=== PATIENT | male | born 1940 | race Caucasian/White ===

== ENCOUNTER 2016-04-22 | Outpatient (CLI) | payer MEDICARE | END 2016-04-22 20:45 | disposition short-term general hospital (02) | CPT/HCPCS: A0425; A0426 ==

== ENCOUNTER 2016-04-22 17:29 | Emergency (ER) | payer MEDICARE ==
[2016-04-22] MEDS ORDERED: SODIUM CHLORIDE 0.9% 1,000 ML IV ONE ×2 (17:54→19:29)
[2016-04-22] MEDS ORDERED: AMPICILLIN/SULBACTAM 3 GM in SODIUM CHLORIDE 0.9% MINIBAG 100 ML IV STA (19:18)
== END 2016-04-22 20:35 | disposition short-term general hospital (02) ==
DX: K83.0 Cholangitis (principal); K80.20 Calculus of gallbladder without cholecystitis without obstruction

== ENCOUNTER 2016-12-06 15:34 | Outpatient (CLI) | payer MEDICARE | END 2016-12-06 15:35 | disposition critical access hospital (66) | LOC: EMS 15:34 | PROVIDERS: ATTEND Surgery | DX: M25.552 Pain in left hip (principal); M79.602 Pain in left arm; W18.30XA Fall on same level, unspecified, initial encounter; Y92.008 Other place in unspecified non-institutional (private) residence as the place of occurrence of the external cause | CPT/HCPCS: A0425; A0429 ==

== ENCOUNTER 2016-12-06 16:06 | Inpatient (IN) | payer MEDICARE, MEDICAID ==
[2016-12-06] MEDS ORDERED: ACETAMINOPHEN 1,000 MG/100 ML 100 ML IV STA (16:20)
[2016-12-06] MEDS ORDERED: ACETAMINOPHEN 1,000 MG/100 ML 100 ML IV ONE (16:40)
[2016-12-06 16:47] LABS: BASOPHILS # (AUTO) 0.1 10^3/uL (0.0-0.1); BASOPHILS % (AUTO) 0.7 %; EOSINOPHILS % (AUTO) 0.3 %; HGB - HEMOGLOBIN 13.9 g/dL (14.0-18.0); LYMPHOCYTES # (AUTO) 0.7 10^3/uL (1.5-3.5); MEAN CORPUSCULAR HEMOGLOBIN 30.9 pg (27.0-31.0); MEAN CORPUSCULAR HGB CONC 33.1 g/dL (32.0-36.0); MEAN CORPUSCULAR VOLUME 93.4 fL (80.0-94.0); MEAN PLATELET VOLUME 7.8 fL (7.4-11.4); MONOCYTES # (AUTO) 0.4 10^3/uL (0.0-1.0); MONOCYTES % (AUTO) 4.6 %; NEUTROPHILS # (AUTO) 7.7 10^3/uL (1.5-6.6); NEUTROPHILS % (AUTO) 86.4 %; RED BLOOD COUNT 4.49 10^6/uL (4.70-6.10); RED CELL DISTRIBUTION WIDTH 14.4 % (12.0-15.0); UNCORRECTED WHITE BLOOD COUNT 8.9 x10^3/uL; WHITE BLOOD COUNT 8.9 x10^3/uL (4.8-10.8)
--- NOTE | 2016-12-06 17:07 | ED Physician Documentation ---
History of Present Illness - Stated complaint Stated Complaint: GLF - Chief complaint Chief Complaint: Trauma Ext - Additonal information Additional information: hx from pt 75 male stumbles and fell today landing on left side states did not hit his head, no [place] or neck pain, no LOC no CP or abd pain has L shoulder and L hip pain had a recent cough but otherwise well without fever NVD etc Review of Systems Constitutional: denies: Fever, Chills Cardiac: denies: Chest pain / pressure Respiratory: reports: Cough GI: denies: Abdominal Pain, Nausea, Vomiting, Diarrhea Musculoskeletal: reports: Extremity pain. denies: Neck pain Neurologic: denies: Headache, Head injury Endocrine: denies: Easy bruising / bleeding Immunocompromised: denies: Immunocompromised PD PAST MEDICAL HISTORY - Past Medical History Past Medical History: Yes Cardiovascular: None Respiratory: None Neuro: Head injury Endocrine/Autoimmune: None GI: None : None HEENT: Chronic hearing loss Psych: None Musculoskeletal: None Derm: None - Past Surgical History Past Surgical History: Yes General: Hiatal hernia repair - Present Medications Home Medications: Ambulatory Orders Medication Instructions Recorded Confirmed Aspirin [Kailee Chewable Aspirin] 81 mg DAILY 03/10/15 03/10/15 Multivitamin [Multivitamins] 1 tab DAILY 03/10/15 03/10/15 - Allergies Allergies/Adverse Reactions: Allergies Allergy/AdvReac Type Severity Reaction Status Date / Time No Known Drug Allergies Allergy Verified 06/05/13 10:09 - Social History Does the pt smoke?: No Smoking Status: Never smoker Does the pt drink ETOH?: No Does the pt have substance abuse?: No - Immunizations Immunizations are current?: No Immunizations: TDAP >10years/unknown PD ED PE NORMAL - Vitals Vital signs reviewed: Yes - General General: Other (alert cooperative) - HEENT HEENT: Atraumatic - Neck Neck: No bony TTP - Cardiac Cardiac: RRR - Respiratory Respiratory: No respiratory distress - Abdomen Abdomen: Soft, Non tender - Derm Derm: Normal color - Extremities Extremities: Other (TTP lateral upper L humerus s deformity or brusing and minimal pain with RROM, MSV intact, L hip TTP greater troch and slightly int rotated, MSV intact) - Neuro Neuro: No motor deficit, No sensory deficit Results - Vitals Vitals: Vital Signs - 24 hr 12/06/16 12/06/16 16:07 17:13 Temperature 36.3 C L 36.4 C L Heart Rate 72 71 Respiratory 16 18 Rate Blood Pressure 145/87 H 144/77 H O2 Saturation 100 100 Oxygen O2 Source Room air - Labs Labs: Laboratory Tests 12/06/16 12/06/16 16:35 17:16 WBC 8.9 RBC 4.49 L Hgb 13.9 L Hct 42.0 MCV 93.4 MCH 30.9 MCHC 33.1 RDW 14.4 Plt Count 259 MPV 7.8 Neut # 7.7 H Lymph # 0.7 L [place] # 0.4 Eos # 0.0 Baso # 0.1 Absolute Nucleated RBC 0.00 Nucleated RBC % 0.0 Sodium 137 Potassium 4.2 Chloride 103 Carbon Dioxide 23 Anion Gap 11.0 BUN 29 H Creatinine 1.0 Estimated GFR (MDRD) 73 L Glucose 125 H Calcium 9.0 - Rads (name of study) hip Radiology: See rad report (intertroch fx) shoulder Radiology: See rad report (no fx) CXR Radiology: See rad report (no acute) PD MEDICAL DECISION MAKING - ED course ED course: 75 male fairly healthy except prior closed head injury stumble fall -> L intertroch spoke to hospitalist approx [phone] and ortho approx [phone] hospitalist to admit, ortho to consult, plan on surgery tomorrow about 1130 doing well with ofirmev for pain Departure - Departure Disposition: 68 [facility] DC/Xfer Clinical Impression: Hip fracture Qualifiers: Encounter type: initial encounter Fracture type: closed Laterality: left Qualified Code(s): S72.002A - Fracture of unspecified part of neck of left femur , initial encounter for closed fracture Fall from slip, trip, or stumble Qualifiers: Encounter type: initial encounter Qualified Code(s): W01.0XXA - Fall on same level from slipping, tripping and stumbling without subsequent striking against object, initial encounter Condition: Good
--- NOTE | 2016-12-06 17:12 | XRAY Preliminary Report ---
Exam: XR SHOULDER 3 VIEW LT IMPRESSION: No evidence of fracture or dislocation. [facility] SITE ID: [id number]
--- NOTE | 2016-12-06 17:14 | XRAY Report ---
EXAM: LEFT SHOULDER RADIOGRAPHY EXAM DATE: 12/06/2016 05:04 PM. CLINICAL HISTORY: Fall. COMPARISON: None. TECHNIQUE: 3 views. FINDINGS: Bones: No evidence of shoulder fracture. There are remote left-sided rib fractures. Joints: No evidence of dislocation. There is mild glenohumeral and acromioclavicular joint degenerat blanca disease. Soft Tissues: No unexpected soft tissue findings. IMPRESSION: No evidence of fracture or dislocation. [facility] Referring Provider Line: [phone] SITE ID: [id number]
--- NOTE | 2016-12-06 17:14 | XRAY Preliminary Report ---
Exam: XR HIP W/PELVIS 2-3V LT IMPRESSION: There is left intertrochanteric proximal femur fracture. No evidence of dislocation. [facility] SITE ID: [id number]
--- NOTE | 2016-12-06 17:17 | XRAY Report ---
EXAM: LEFT HIP AND PELVIS RADIOGRAPHY EXAM DATE: 12/06/2016 05:04 PM. HISTORY: Fall. COMPARISONS: None. TECHNIQUE: 1 view of the pelvis and 1 view of the hip. FINDINGS: Bones: There is displaced intertrochanteric femur fracture. No other focal bony abnormalities are see n. Joints: No evidence of dislocation. Soft Tissues: Normal. No soft tissue swelling. IMPRESSION: There is left intertrochanteric proximal femur fracture. No evidence of dislocation. [facility] Referring Provider Line: [phone] SITE ID: [id number]
[2016-12-06 17:31] LABS: POTASSIUM 4.2 mmol/L (3.5-5.0)
--- NOTE | 2016-12-06 17:36 | XRAY Preliminary Report ---
Exam: XR CHEST 1 VIEW IMPRESSION: No acute intrathoracic plain film abnormality. [facility] SITE ID: [id number]
--- NOTE | 2016-12-06 17:38 | XRAY Report ---
EXAM: CHEST RADIOGRAPHY EXAM DATE: 12/06/2016 05:24 PM. CLINICAL HISTORY: Cough. COMPARISON: 10/11/2006. TECHNIQUE: 1 view. FINDINGS: Lungs/Pleura: No evidence of acute consolidation or effusion. No pneumothorax. There is mild relative right hemidiaphragm elevation. Mediastinum: Heart size is within normal limits. There is thoracic aortic tortuosity. Stable filters projecting over the SVC. Other: There are remote left-sided rib fractures. IMPRESSION: No acute intrathoracic plain film abnormality. [facility] Referring Provider Line: [phone] SITE ID: [id number]
[2016-12-06] MEDS ORDERED: ACETAMINOPHEN 325 MG TABLET PO PRN (18:32)
[2016-12-06] MEDS ORDERED: ZOLPIDEM 5 MG TABLET PO PRN (18:32)
[2016-12-06] MEDS ORDERED: ONDANSETRON 4 MG/2 ML VIAL IVP PRN (18:32)
[2016-12-06] MEDS ORDERED: SODIUM CHLORIDE FLUSH 0.9% 10 ML SYRINGE IVP PRN (18:32)
--- NOTE | 2016-12-06 18:42 | HISTORY & PHYSICAL EXAMINATION ---
Chief Complaint - Chief Complaint Chief Complaint: hip fracture History of Present Illness - Admitted From Admitted From:: ER - History Obtained From History obtained from: pt - History of Present Illness HPI Comment/Other: this is 75-year-old [place] male with a significant medical history of chronic hearing loss, previous head injury, present ER for evaluation of left hip injury. Pt state stumbles and fall at concrete floor at his car garage. His left hip hit the floor, he feels pain immediately at left hip. Patient denies other injuries and other complains. Xray reveal pt had left hip non-displaced intertrochanteric femur fracture. Dr. Zapata was called at ER, and pt will have surgery on tomorrow. The lab tests in ER are unremarkable. History - Past Medical History Cardiovascular: reports: None Respiratory: reports: None Neuro: reports: Head injury Endocrine/Autoimmune: reports: None GI: reports: None : reports: None HEENT: reports: Chronic hearing loss Psych: reports: None Musculoskeletal: reports: None Derm: reports: None MRSA Hx?: No - Past Surgical History General: reports: Hiatal hernia repair - Family & Social History Family History Comment/Other: pt state he is retired and is living alone at [place]. Living arrangement: At home Living Situation: Alone - Substance History Use: Uses substance without health or social issues: NONE Abuse: Recurrent use of substance despite neg consequences: NONE Dependence: Experiences withdrawal or developed tolerances: NONE - POLST POLST Status: Full Code Meds/Allgy - Home Medications Home Medications: Ambulatory Orders Medication Instructions Recorded Confirmed Aspirin [Kailee Chewable Aspirin] 81 mg DAILY 03/10/15 03/10/15 Multivitamin [Multivitamins] 1 tab DAILY 03/10/15 03/10/15 - Allergies Allergies/Adverse Reactions: Allergies Allergy/AdvReac Type Severity Reaction Status Date / Time No Known Drug Allergies Allergy Verified 06/05/13 10:09 Review of Systems - Constitutional Constitutional: reports: Fatigue, Fever, Chills, Malaise. denies: Weakness, Poor appetite, Diaphoresis, Night sweats, Weight gain, Weight loss - Eyes Eyes: denies: Pain, Irritation, Amaurosis, Blurred vision, Spots in vision, Field loss, Vision loss, Dipolpia - Ears, Nose & Throat Ears, Nose & Throat: reports: Hearing loss, Hearing aids. denies: Ear pain, Tinnitus, Vertigo, Nasal pain, Nasal discharge, Nosebleeds, Nasal congestion, Postnasal drainage, Sore throat, Hoarseness, Mouth lesions, Bleeding gums - Cardiovascular Cariovascular: denies: Irregular heart rate, Palpitations, Chest pain, Edema, Lightheadedness, Syncope, Exertional dyspnea, Decr. exercise tolerance, Orthopnea - Respiratory Respiratory: denies: Cough, Sputum production, Wheezing, Snoring, Hemoptysis, Orthopnea, SOB at rest, SOB with exertion - Gastrointestinal Gastrointestinal: denies: Abdominal pain, Abdominal distention, Constipation, Diarrhea, Change in bowel habits, Rectal bleeding, Black stools, Bloody stools, Nausea, Vomiting, Ian blood emesis, Coffee grounds emesis, Poor appetite - Genitourinary Genitourinary: denies: Dysuria, Frequency, Urgency, Hematuria, Incontinence, Flank pain, Nocturia, Urethral discharge - Musculoskeletal Musculoskeletal: reports: Limited range of motion (left hip), Joint pain (left hip). denies: Muscle pain, Back pain, Muscle aches, Stiffness, Muscle weakness , Gout, Joint swelling - Integumentary Integumentary: denies: Rash, Pruritis, Lesions, Dryness, Lumps, Acne, Pigment changes, Nail changes - Neurological Neurological: denies: General weakness, Focal weakness, Headache, Dizziness, Numbness, Memory problems, Pre-existing deficit, Abnormal gait, Seizures, Incoordination, Slurred speech - Psychiatric Psychiatric: denies: Depression, Anxiety, Suicidal, Delusions, Hallucinations, Homicidal - Endocrine Endocrine: denies: Polyuria, Polydypsia, Polyphagia, Intolerance to cold, Intolerance to heat - Hematologic/Lymphatic Hematologic/Lymphatic: denies: Anemia, Bruising, Petechiae, Blood clots, Lymphadenopathy, Bleeding tendencies, Recurrent infections Exam - Vital Signs Reviewed Vital Signs: Yes Vital Signs: Vital Signs x48h Temp Pulse Resp BP Pulse Ox 12/06/16 17:13 36.4 C L 71 18 144/77 H 100 12/06/16 16:07 36.3 C L 72 16 145/87 H 100 - Physical Exam General Appearance: positive: No acute distress, Alert. negative: Lethargic Eyes Bilateral: positive: Normal inspection, PERRL, EOMI, No lid inflammation, Conjunctivae nml ENT: positive: ENT inspection nml, Pharynx nml, No signs of dehydration. negative: Purulent nasal drainage, Pharyngeal erythema, Oral lesions Neck: positive: Nml inspection, Thyroid nml, No JVD, Trachea midline. negative : Thyromegaly, Lymphadenopathy (R), Lymphadenopathy (L), Stiff neck, Carotid bruit, Swelling/bruising, Tracheal deviation Respiratory: positive: Chest non-tender, No respiratory distress, Breath sounds nml. negative: Wheezes, Rales, Rhonchi Cardiovascular: positive: Regular rate & rhythm, No murmur, No gallop. negative : Irregularly irregular, Extrasystoles, Tachycardia, Bradycardia, Systolic murmur, Diastolic murmur Peripheral Pulses: positive: 2+ Abdomen: positive: Non-tender, No organomegaly, Nml bowel sounds, No distention. negative: Tenderness, Guarding, Rebound, Abnml bowel sounds Back: positive: Nml inspection. negative: CVA tenderness (R), CVA tenderness (L ) Skin: positive: Color nml, No rash, Warm, Dry. negative: Cyanosis, Diaphoresis , Pallor, Skin rash Extremities: positive: Non-tender, Full ROM, Nml appearance, Other (left hip ROM is limited and pain. The sensation and pulsation, and mobility of The distal of left lower extremity are intact.). negative: Pedal edema, Calf tenderness, Joint swelling, Qasim's sign/cords Neurologic/Psychiatric: positive: Oriented x3, Motor nml, Sensation nml, Mood/ affect nml. negative: Sensory loss, Facial droop, Slurred/abnml speech, Depressed mood/affect Conclusion/Plan - Problem List (1) Intertrochanteric fracture of left hip Conclusion/Plan: orthopedics surgeon was consulted NPO after midnight IVF with NS pain control lab, vital check Qualifiers: Encounter type: initial encounter Fracture type: closed Fracture alignment: nondisplaced Qualified Code(s): S72.145A - Nondisplaced intertrochanteric fracture of left femur, initial encounter for closed fracture (2) Hearing deficit Conclusion/Plan: pt state it is chronic, pt has hearing aid continue hearing aid, support (3) Hx of head injury Conclusion/Plan: stable, no acute complains. vital, daily lab monitor, support. (4) DVT prophylaxis Conclusion/Plan: High risk of injury to DVT SCD and lovenox, follow up surgeon. - Lab Results Fish Bones: 12/07/16 05:09 12/07/16 05:09 Issues/Core Measures - Anticipated LOS Anticipated Stay Length: 2 or more midnights (expected 2 more nights)
[2016-12-06] MEDS: HYDROcod/ACETAM 5/325 MG TABLET PO PRN (19:18)
[2016-12-06] MEDS: SODIUM CHLORIDE 0.9% 1,000 ML IV SCH (19:35)
--- NOTE | 2016-12-06 19:55 | PROVIDER PROGRESS NOTE ---
Subjective - Prog Note Date Prog Note Date: 12/06/16 Prog Note Time: 19:53 - Subjective Subjective: Patient STHH a GLF this afternoon after stumbling at home. No LOC or other injury, but noted immendiate left hip pain. Unable to stand or weight bear on left side. Taken to ER where XR showed a non displaced left IT hip fracture. Objective - Vital Signs/Intake & Output Vital Signs: Vital Signs x48h Temp Pulse Resp BP Pulse Ox 12/06/16 19:08 36.5 C 66 16 132/75 H 98 - Lab Results Fish Bones: 12/06/16 16:35 12/06/16 17:16 - Diagnostic Imaging Diagnostic Imaging Comments: XR show non displaced left IT hip fracture - Other Results/Comments Other Results/Comments: EXAM: Painful left hip motion. Moves toes well. Sensation intact. Good cap filling Assessment/Plan - Problem List (1) Hip fracture Impression: PLAN: After medical clearance, plan short interTan nailing of left hip fracture. Likely in AM at 1130. Risk and benefit of surgery explained and patient wishes to proceed as planned. Qualifiers: Encounter type: initial encounter Fracture type: closed Laterality: left Qualified Code(s): S72.002A - Fracture of unspecified part of neck of left femur, initial encounter for closed fracture
[2016-12-06] MEDS ORDERED: HYDROcod/ACETAM 10 MG/325 MG TABLET PO PRN (21:33)
[2016-12-06] MEDS: TAMSULOSIN 0.4 MG CAPSULE PO SCH (22:17)
[2016-12-06] MEDS: SODIUM CHLORIDE FLUSH 0.9% 10 ML SYRINGE IVP SCH (22:18)
[2016-12-07 02:30] LABS: BILIRUBIN,URINE NEGATIVE (NEGATIVE)
[2016-12-07 02:31] LABS: UA CHARGE (STRIP ONLY) YES; UR CULTURE IF IND NOT INDICATED
[2016-12-07] MEDS: SODIUM CHLORIDE FLUSH 0.9% 10 ML SYRINGE IVP SCH ×3 (04:13→20:01)
[2016-12-07] MEDS: SODIUM CHLORIDE 0.9% 1,000 ML IV SCH ×2 (05:09→17:10)
[2016-12-07 05:56] LABS: BASOPHILS % (AUTO) 0.4 %; EOSINOPHILS % (AUTO) 0.4 %; HGB - HEMOGLOBIN 13.3 g/dL (14.0-18.0); LYMPHOCYTES # (AUTO) 1.1 10^3/uL (1.5-3.5); LYMPHOCYTES % (AUTO) 17.5 %; MEAN CORPUSCULAR HEMOGLOBIN 31.3 pg (27.0-31.0); MEAN CORPUSCULAR HGB CONC 33.3 g/dL (32.0-36.0); MEAN CORPUSCULAR VOLUME 93.9 fL (80.0-94.0); MEAN PLATELET VOLUME 7.8 fL (7.4-11.4); MONOCYTES # (AUTO) 0.6 10^3/uL (0.0-1.0); MONOCYTES % (AUTO) 9.5 %; NEUTROPHILS # (AUTO) 4.7 10^3/uL (1.5-6.6); NEUTROPHILS % (AUTO) 72.2 %; RED BLOOD COUNT 4.26 10^6/uL (4.70-6.10); RED CELL DISTRIBUTION WIDTH 14.1 % (12.0-15.0); UNCORRECTED WHITE BLOOD COUNT 6.5 x10^3/uL; WHITE BLOOD COUNT 6.5 x10^3/uL (4.8-10.8)
[2016-12-07 06:01] LABS: ALBUMIN/GLOBULIN RATIO 1.2 (1.0-2.2); BILIRUBIN,TOTAL 3.1 mg/dL (0.2-1.0); CALCIUM 8.4 mg/dL (8.5-10.3); MAGNESIUM 1.8 mg/dL (1.7-2.8); POTASSIUM 4.6 mmol/L (3.5-5.0); TOTAL PROTEIN 6.5 g/dL (6.7-8.2)
[2016-12-07] MEDS: FAMOTIDINE 20 MG TABLET PO SCH (07:35)
[2016-12-07] MEDS: ENOXAPARIN 40 MG/0.4 ML SYRINGE SUBQ SCH (07:35)
[2016-12-07] MEDS: POLYETHYLENE GLYCOL 3350 17 GM PACKET PO SCH (07:35)
[2016-12-07] MEDS: TAMSULOSIN 0.4 MG CAPSULE PO SCH (07:36)
--- NOTE | 2016-12-07 08:08 | PROVIDER PROGRESS NOTE ---
Assessment/Plan - Problem List (1) Intertrochanteric fracture of left hip Qualifiers: Encounter type: initial encounter Fracture type: closed Fracture alignment: nondisplaced Qualified Code(s): S72.145A - Nondisplaced intertrochanteric fracture of left femur, initial encounter for closed fracture (2) Hearing loss of both ears Qualifiers: Hearing loss type: unspecified Qualified Code(s): H91.93 - Unspecified hearing loss, bilateral Assessment/Plan: stable and patient has hearing aids. continue to provide education with written and oral. (3) Serum total bilirubin elevated Assessment/Plan: acute on chronic. continue to monitor with daily lab draws. - Current Meds Current Meds: Current Medications Generic Name Dose Route Start Last Admin Trade Name Freq PRN Reason Stop Dose Admin Acetaminophen 650 mg 12/06/16 18:32 12/06/16 22:18 Tylenol PO 650 mg Q4HR PRN Administration Pain 1 to 4 Acetaminophen/Hydrocodone Bitart 1 tab 12/06/16 18:32 12/06/16 19:18 [place] 5/325 PO 1 tab Q4HR PRN Administration Pain 5 to 7 Acetaminophen/Hydrocodone Bitart 1 tab 12/06/16 21:33 12/06/16 22:18 [place] 10 Mg/325 Mg PO 1 tab Q4HR PRN Administration PAIN 8-10 Enoxaparin Sodium 40 mg 12/07/16 09:00 12/07/16 07:35 Lovenox SUBQ Not Given DAILY KARRIE Famotidine 20 mg 12/07/16 09:00 12/07/16 07:35 Pepcid PO Not Given DAILY KARRIE Sodium Chloride 1,000 mls @ 100 mls/hr 12/06/16 19:00 12/07/16 05:09 Normal Saline 0.9% IV 100 mls/hr .Q10H KARRIE Administration Polyethylene Glycol 17 gm 12/07/16 09:00 12/07/16 07:35 Miralax PO Not Given DAILY KARRIE Sodium Chloride 10 ml 12/06/16 22:00 12/07/16 04:13 Normal Saline Flush 0.9% IVP Not Given Q8HR KARRIE Tamsulosin HCl 0.4 mg 12/06/16 22:00 12/07/16 07:36 Flomax PO Not Given DAILY KARRIE Zolpidem Tartrate 5 mg 12/06/16 18:32 10/16/17 22:18 Ambien PO 5 mg QPM PRN Administration Insomnia - Lab Result Lab results reviewed: Yes Fish Bone Diagrams: 12/07/16 05:09 12/07/16 05:09 Other Lab Results: Abnormal Lab Results 12/06/16 12/06/16 12/07/16 16:35 17:16 05:09 RBC 4.49 10^6/uL L 10^6/uL 4.26 10^6/uL L 10^6/uL (4.70-6.10) (4.70-6.10) Hgb 13.9 g/dL L g/dL 13.3 g/dL L g/dL (14.0-18.0) (14.0-18.0) Hct 40.0 % L % (42.0-52.0) MCH 31.3 pg H pg (27.0-31.0) Neut # 7.7 10^3/uL H 10^3/uL (1.5-6.6) Lymph # 0.7 10^3/uL L 10^3/uL 1.1 10^3/uL L 10^3/uL (1.5-3.5) (1.5-3.5) BUN 29 mg/dL H mg/dL (6-20) Estimated GFR (MDRD) 73 L (>89) Glucose 125 mg/dL H mg/dL (70-100) Calcium Total Bilirubin Total Protein 12/07/16 05:09 RBC Hgb Hct MCH Neut # Lymph # BUN 21 mg/dL H mg/dL (6-20) Estimated GFR (MDRD) 73 L (>89) Glucose 110 mg/dL H mg/dL (70-100) Calcium 8.4 mg/dL L mg/dL (8.5-10.3) Total Bilirubin 3.1 mg/dL H mg/dL (0.2-1.0) Total Protein 6.5 g/dL L g/dL (6.7-8.2) - EKG Results EKG Interpreted Independently: No - Diagnostic Imaging Results Diagnostic Imaging Results: Final report reviewed - Additional Planning Condition/Complexity: Stable Consult/Specialty: OT, PT, Surgery Plan Discussed with:: Patient Time Spent: 31-60 minutes Subjective - Subjective Patient Reports: Resting Comfortably, Back Pain, Fatigue (denies chest pain or shortness of breath), Pain (patient has left lower back and upper left shoulder arm pain. He states he didnt sleep well last night .) Nursing Reports: Pain (in his lower back and left hip) Objective Vital Signs: Vital Signs - 24 hr 12/06/16 12/07/16 19:08 01:31 Temperature 36.5 C 36.8 C Heart Rate [ 66 71 Apical] Respiratory 16 18 Rate Blood Pressure 132/75 H 130/78 [Right Brachial artery] O2 Saturation 98 99 Oxygen O2 Source Room air I&O (Last 24 Hrs): Intake and Output Totals x24h 12/05/16 12/06/16 12/07/16 23:59 23:59 23:59 Intake Total 956.667 Output Total 0 900 Balance 0 56.667 General: Alert, Oriented x3, Cooperative HEENT: Atraumatic, PERRLA, Mucous membr. moist/pink Neck: Supple, No JVD, No thyromegaly, +2 carotid pulse wo bruit Lymphatic: no adenopathy Neuro: Alert, CN 2-12 Grossly Intact, Oriented Times 3 Cardiovascular: Regular rate, Normal S1, Normal S2, Other (paced) Respiratory: Chest non-tender, No respiratory distress, Breath sounds nml Abdomen: Normal bowel sounds, Soft, No tenderness, No hepatospenomegaly, No masses Rectal: Stool - Heme NEG Extremities: No clubbing, No edema, Normal pulses, Other (tenderness to left hip and lower back) Skin: No breakdown - Results Results: Laboratory Results WBC 6.5 x10^3/uL (4.8-10.8) 12/07/16 05:09 RBC 4.26 10^6/uL (4.70-6.10) L 12/07/16 05:09 Hgb 13.3 g/dL (14.0-18.0) L 12/07/16 05:09 Hct 40.0 % (42.0-52.0) L 12/07/16 05:09 MCV 93.9 fL (80.0-94.0) 12/07/16 05:09 MCH 31.3 pg (27.0-31.0) H 12/07/16 05:09 MCHC 33.3 g/dL (32.0-36.0) 12/07/16 05:09 RDW 14.1 % (12.0-15.0) 12/07/16 05:09 Plt Count 205 10^3/uL (130-450) 12/07/16 05:09 MPV 7.8 fL (7.4-11.4) 12/07/16 05:09 Neut # 4.7 10^3/uL (1.5-6.6) 12/07/16 05:09 Lymph # 1.1 10^3/uL (1.5-3.5) L 12/07/16 05:09 [place] # 0.6 10^3/uL (0.0-1.0) 12/07/16 05:09 Eos # 0.0 10^3/uL (0.0-0.7) 12/07/16 05:09 Baso # 0.0 10^3/uL (0.0-0.1) 12/07/16 05:09 Absolute Nucleated RBC 0.00 x10^3/uL 12/07/16 05:09 Nucleated RBC % 0.0 /100WBC 12/07/16 05:09 Sodium 138 mmol/L (135-145) 12/07/16 05:09 Potassium 4.6 mmol/L (3.5-5.0) 12/07/16 05:09 Chloride 107 mmol/L (101-111) 12/07/16 05:09 Carbon Dioxide 25 mmol/L (21-32) 12/07/16 05:09 Anion Gap 6.0 (6-13) 12/07/16 05:09 BUN 21 mg/dL (6-20) H 12/07/16 05:09 Creatinine 1.0 mg/dL (0.6-1.2) 12/07/16 05:09 Estimated GFR (MDRD) 73 (>89) L 12/07/16 05:09 Glucose 110 mg/dL (70-100) H 12/07/16 05:09 Calcium 8.4 mg/dL (8.5-10.3) L 12/07/16 05:09 Magnesium 1.8 mg/dL (1.7-2.8) 12/07/16 05:09 Total Bilirubin 3.1 mg/dL (0.2-1.0) H 12/07/16 05:09 AST 19 IU/L (10-42) 12/07/16 05:09 ALT 15 IU/L (10-60) 12/07/16 05:09 Alkaline Phosphatase 89 IU/L (42-121) 12/07/16 05:09 Total Protein 6.5 g/dL (6.7-8.2) L 12/07/16 05:09 Albumin 3.5 g/dL (3.2-5.5) 12/07/16 05:09 Globulin 3.0 g/dL (2.1-4.2) 12/07/16 05:09 Albumin/Globulin Ratio 1.2 (1.0-2.2) 12/07/16 05:09 Urine Color YELLOW 12/07/16 01:00 Urine Clarity CLEAR (CLEAR) 12/07/16 01:00 Urine pH 6.0 PH (5.0-7.5) 12/07/16 01:00 Ur Specific [place] 1.020 (1.002-1.030) 12/07/16 01:00 Urine Protein NEGATIVE mg/dL (NEGATIVE) 12/07/16 01:00 Urine Glucose (UA) NEGATIVE mg/dL (NEGATIVE) 12/07/16 01:00 Urine Ketones TRACE mg/dL (NEGATIVE) 12/07/16 01:00 Urine Occult Blood NEGATIVE (NEGATIVE) 12/07/16 01:00 Urine Nitrite NEGATIVE (NEGATIVE) 12/07/16 01:00 Urine Bilirubin NEGATIVE (NEGATIVE) 12/07/16 01:00 Urine Urobilinogen 0.2 (NORMAL) E.U./dL (NORMAL) 12/07/16 01:00 Ur Leukocyte Esterase NEGATIVE (NEGATIVE) 12/07/16 01:00 Ur Microscopic Review NOT INDICATED 12/07/16 01:00 Urine Culture Comments NOT INDICATED 12/07/16 01:00 Blood Type O NEGATIVE 12/07/16 05:09 Antibody Screen NEGATIVE 12/07/16 05:09 - Procedures Procedures: Procedures INSPECTION OF LOWER INTESTINAL TRACT, ENDO (02/27/15)
[2016-12-07] MEDS ORDERED: HYDROmorphone 0.5 MG/0.5 ML SYRINGE IVP ONE (08:52)
[2016-12-07] MEDS ORDERED: ceFAZolin 2 GM/50 ML 2 GM/50 ML BAG IV SCH (11:30)
--- NOTE | 2016-12-07 13:03 | PROVIDER PROGRESS NOTE ---
Subjective - Prog Note Date Prog Note Date: 12/07/16 Prog Note Time: 13:02 - Subjective Pt reports feeling: No change Objective - Vital Signs/Intake & Output Vital Signs: Vital Signs x48h Temp Pulse Resp BP Pulse Ox 12/07/16 08:42 36.8 C 62 16 127/71 96 Intake & Output: Intake & Output 12/04/16 12/05/16 12/06/16 12/07/16 23:59 23:59 23:59 23:59 Intake Total 1696.667 Output Total 0 900 Balance 0 796.667 - Lab Results Fish Bones: 12/07/16 05:09 12/07/16 05:09 Other Labs: Lab Results x24hrs 12/07/16 12/07/16 12/07/16 Range/Units 05:09 05:09 05:09 WBC 6.5 (4.8-10.8) x10^3/uL RBC 4.26 L (4.70-6.10) 10^6/uL Hgb 13.3 L (14.0-18.0) g/dL Hct 40.0 L (42.0-52.0) % MCV 93.9 (80.0-94.0) fL MCH 31.3 H (27.0-31.0) pg MCHC 33.3 (32.0-36.0) g/dL RDW 14.1 (12.0-15.0) % Plt Count 205 (130-450) 10^3/uL MPV 7.8 (7.4-11.4) fL Neut # 4.7 (1.5-6.6) 10^3/uL Lymph # 1.1 L (1.5-3.5) 10^3/uL [place] # 0.6 (0.0-1.0) 10^3/uL Eos # 0.0 (0.0-0.7) 10^3/uL Baso # 0.0 (0.0-0.1) 10^3/uL Absolute Nucleated RBC 0.00 x10^3/uL Nucleated RBC % 0.0 /100WBC Sodium 138 (135-145) mmol/L Potassium 4.6 (3.5-5.0) mmol/L Chloride 107 (101-111) mmol/L Carbon Dioxide 25 (21-32) mmol/L Anion Gap 6.0 (6-13) BUN 21 H (6-20) mg/dL Creatinine 1.0 (0.6-1.2) mg/dL Estimated GFR (MDRD) 73 L (>89) Glucose 110 H (70-100) mg/dL Calcium 8.4 L (8.5-10.3) mg/dL Magnesium 1.8 (1.7-2.8) mg/dL Total Bilirubin 3.1 H (0.2-1.0) mg/dL AST 19 (10-42) IU/L ALT 15 (10-60) IU/L Alkaline Phosphatase 89 (42-121) IU/L Total Protein 6.5 L (6.7-8.2) g/dL Albumin 3.5 (3.2-5.5) g/dL Globulin 3.0 (2.1-4.2) g/dL Albumin/Globulin Ratio 1.2 (1.0-2.2) Urine Color Urine Clarity (CLEAR) Urine pH (5.0-7.5) PH Ur Specific [place] (1.002-1.030) Urine Protein (NEGATIVE) mg/dL Urine Glucose (UA) (NEGATIVE) mg/dL Urine Ketones (NEGATIVE) mg/dL Urine Occult Blood (NEGATIVE) Urine Nitrite (NEGATIVE) Urine Bilirubin (NEGATIVE) Urine Urobilinogen (NORMAL) E.U./dL Ur Leukocyte Esterase (NEGATIVE) Ur Microscopic Review Urine Culture Comments Blood Type O NEGATIVE Antibody Screen NEGATIVE 12/07/16 Range/Units 01:00 WBC (4.8-10.8) x10^3/uL RBC (4.70-6.10) 10^6/uL Hgb (14.0-18.0) g/dL Hct (42.0-52.0) % MCV (80.0-94.0) fL MCH (27.0-31.0) pg MCHC (32.0-36.0) g/dL RDW (12.0-15.0) % Plt Count (130-450) 10^3/uL MPV (7.4-11.4) fL Neut # (1.5-6.6) 10^3/uL Lymph # (1.5-3.5) 10^3/uL [place] # (0.0-1.0) 10^3/uL Eos # (0.0-0.7) 10^3/uL Baso # (0.0-0.1) 10^3/uL Absolute Nucleated RBC x10^3/uL Nucleated RBC % /100WBC Sodium (135-145) mmol/L Potassium (3.5-5.0) mmol/L Chloride (101-111) mmol/L Carbon Dioxide (21-32) mmol/L Anion Gap (6-13) BUN (6-20) mg/dL Creatinine (0.6-1.2) mg/dL Estimated GFR (MDRD) (>89) Glucose (70-100) mg/dL Calcium (8.5-10.3) mg/dL Magnesium (1.7-2.8) mg/dL Total Bilirubin (0.2-1.0) mg/dL AST (10-42) IU/L ALT (10-60) IU/L Alkaline Phosphatase (42-121) IU/L Total Protein (6.7-8.2) g/dL Albumin (3.2-5.5) g/dL Globulin (2.1-4.2) g/dL Albumin/Globulin Ratio (1.0-2.2) Urine Color YELLOW Urine Clarity CLEAR (CLEAR) Urine pH 6.0 (5.0-7.5) PH Ur Specific [place] 1.020 (1.002-1.030) Urine Protein NEGATIVE (NEGATIVE) mg/dL Urine Glucose (UA) NEGATIVE (NEGATIVE) mg/dL Urine Ketones TRACE (NEGATIVE) mg/dL Urine Occult Blood NEGATIVE (NEGATIVE) Urine Nitrite NEGATIVE (NEGATIVE) Urine Bilirubin NEGATIVE (NEGATIVE) Urine Urobilinogen 0.2 (NORMAL) (NORMAL) E.U./dL Ur Leukocyte Esterase NEGATIVE (NEGATIVE) Ur Microscopic Review NOT INDICATED Urine Culture Comments NOT INDICATED Blood Type Antibody Screen - Other Results/Comments Other Results/Comments: EXAM: unchanged Assessment/Plan - Problem List (1) Hip fracture Impression: Stable and ready for surgery later today. Qualifiers: Encounter type: initial encounter Fracture type: closed Laterality: left Qualified Code(s): S72.002A - Fracture of unspecified part of neck of left femur, initial encounter for closed fracture
[2016-12-07] MEDS ORDERED: BUPIVACAINE 0.25%-EPI 1:200000 PF 30 ML VIAL SUBQ ONE ×2 (14:26)
[2016-12-07] MEDS ORDERED: LACTATED RINGERS 800 ML IV ONE (14:53)
--- NOTE | 2016-12-07 16:14 | OPERATIVE REPORT ---
Operative Report - General Admit Date: 12/06/16 Procedure Date: 12/07/16 Planned Procedure: Short interTan nailing of left hip fracture Pre-Op Diagnosis: Left hip fracture Procedure Performed: Short interTan nailing of left hip fracture Post Op Diagnosis: Same - Procedure Note Primary Surgeon: Lazarus Zapata Anesthesia Provider: Candida Trivedi Anesthesia Technique: Spinal IV Fluids (mL): 1,000 Estimated Blood Loss (mL): 100
[2016-12-07] MEDS ORDERED: SODIUM CHLORIDE FLUSH 0.9% 10 ML SYRINGE IVP PRN (16:15)
[2016-12-07] MEDS ORDERED: ACETAMINOPHEN 325 MG TABLET PO PRN (16:15)
[2016-12-07] MEDS ORDERED: SENNA 8.6 MG TABLET PO PRN (16:15)
[2016-12-07] MEDS ORDERED: MORPHINE 2 MG/ML SYRINGE IVP PRN (16:15)
[2016-12-07] MEDS ORDERED: oxyCOD/ACETAMIN 5 MG/325 MG TABLET PO PRN (16:15)
[2016-12-07] MEDS ORDERED: ACETAMINOPHEN 1,000 MG/100 ML 100 ML IV PRN (16:15)
[2016-12-07] MEDS ORDERED: PROCHLORPERAZINE 10 MG/2 ML VIAL IVP PRN (16:15)
[2016-12-07] MEDS ORDERED: ONDANSETRON 4 MG/2 ML VIAL IVP PRN (16:15)
[2016-12-07] MEDS ORDERED: DOCUSATE SODIUM 100 MG CAPSULE PO PRN (16:15)
[2016-12-07] MEDS ORDERED: PROPOFOL 200 MG/20 ML VIAL IVP ONE (16:30)
[2016-12-07] MEDS ORDERED: KETAMINE 500 MG/10 ML VIAL IVP ONE (16:30)
--- NOTE | 2016-12-07 16:36 | XRAY Preliminary Report ---
Exam: XR HIP W/PELVIS 2-3V LT IMPRESSION: Fluoroscopic guidance provided for Dr. Zapata. Total fluoroscopy time: 34 seconds. Number o f images: 4. [facility] SITE ID: [id number]
--- NOTE | 2016-12-07 16:37 | XRAY Preliminary Report ---
Exam: [place] OR C-ARM PROCEDURE See separate report. SITE ID: [id number]
--- NOTE | 2016-12-07 16:39 | XRAY Report ---
EXAM: FLUOROSCOPIC GUIDANCE EXAM DATE: 12/07/2016 04:11 PM. CLINICAL HISTORY: Left Hip Pinning. COMPARISON: 12/06/2016. FINDINGS: Images demonstrate placement of a short intramedullary radha in the left proximal femur secur ed by means of one screw distally and an articulated femoral neck pin proximally, holding the previou sly described fracture in anatomic alignment. IMPRESSION: Fluoroscopic guidance provided for Dr. Zapata. Total fluoroscopy time: 34 seconds. Number o f images: 4. [facility] Referring Provider Line: [phone] SITE ID: [id number]
--- NOTE | 2016-12-07 16:40 | XRAY Report ---
EXAM: FLUOROSCOPIC GUIDANCE SEE SEPARATE REPORT. Referring Provider Line: [phone] SITE ID: [id number]
--- NOTE | 2016-12-07 17:05 | OPERATIVE REPORT ---
DATE OF SURGERY: 12/07/2016 00:00:00 PREOPERATIVE DIAGNOSIS: Left intertrochanteric hip fracture. POSTOPERATIVE DIAGNOSIS: Left intertrochanteric hip fracture. NAME OF PROCEDURE: Closed reduction and short InterTan nailing of left hip fracture. SURGEON: Lazarus Zapata MD ANESTHESIA: Spinal. DESCRIPTION OF PROCEDURE: The patient was taken to the operating room on the afternoon of the 07 of December, where he was placed under a spinal anesthetic without any complications. He was then positi oned in the supine position onto the fracture table. The right unfractured leg was then flexed and wi jerel abducted, and held in a well leg hansen. The fractured left lower extremity was then placed into longitudinal traction, with the leg internally rotated approximately 25 degrees. Preoperative x-rays were taken in the AP and lateral projections with the C-arm fluoroscopic machine showing a good redu ction of our fracture and the fracture out to length. We then prepped and draped the lateral aspect o f the hip in the usual fashion for our procedure. Making an oblique skin incision proximal to the tip of the greater trochanter, we dissected down to the greater trochanter. This is where we placed the tip of the guided wire from our InterTan nail set. This was placed near the tip of the greater trocha nter. We then proceeded to advance the threaded-tip guidewire from the greater trochanter down the fe moral shaft to the level of the subtrochanter. The position of the guidewire was checked in AP and la teral projections. Satisfied with the position of our guide pin, we then used a cannulated 16 mm hill ned reamer and reamed the proximal femur over our inserted guide pin down to the level of the lesser trochanter. We removed the guide pin and the reamer at this point. We then inserted our selected shor t InterTan nail, 10 mm x 18 cm x 125-degree angle nail. This was inserted until visually, the oblique hole in the proximal end of the nail seemed to align with the center of the femoral neck and head. S atisfied with the position, we then inserted the oval sleeve guide through a small skin incision late ral to the proximal thigh. We then advanced the threaded guide pin through our drill sleeve, through the proximal femur into the femoral head and into the femoral neck. Fluoroscopic views in AP and late ral projections showed a central location of our guide pin, both in the AP and lateral projections, w ith the tip of the guide pin to within about 3 mm of the subchondral bone in both views. Satisfied wi th the position, we then used the direct measuring guide to determine that a 150 mm length hip lag sc rew would be utilized. We removed our drill sleeve and then drilled with our cannulated reamer over o ur guide pin to within 0.5 cm of the tip of our guide pin. After we removed our reamer, we then proce eded to insert manually the selected subtrochanteric hip lag screw. Then, it had been selected and pl aced on the long term care social worker. This was advanced until the tip of the hip lag screw was within 3 mm of subchon dral bone in the AP and lateral projections. Satisfied with the depth and placement of our hip lag sc rew, we then checked the position of the fracture and felt we had a good reduction of our fracture an d satisfactory placement of our proximal hardware. At this point, we locked the proximal end of our n ail with the hinged screwdriver. The set screw was advanced until snug and we then backed off by abou t a 90-degree turn. We then removed our insertion apparatus for the hip lag screw. Next, we placed co ncentric gold and silver drill sleeves into the static hole of our alignment guide. This was then ext ended down to the lateral femoral shaft cortex. Our drill was then used to drill both the lateral and medial femoral shaft cortex through our drill sleeve. Fluoroscopic views showed that we have penetra edenilson both cortices. Taking a measurement directly off for drill sleeve, we determined that a 35 mm kamryn gth x 5 mm diameter locking screw would be utilized. We removed the drill in the silver sleeve. We th en inserted the selected screw on our screwdriver through the drilled hole. Fluoroscopic views at the end showed that we had a bicortical locked interlocking screw through the distal end of our nail. Fi nal views were then taken in AP and lateral projections of the tip of our nail distally, as well as p roximally of our hip fracture site. Satisfied with our hardware and the reduction of our fracture, we then removed our alignment/insertion guide with a ball-tipped screwdriver. We irrigated the wounds o ut thoroughly with saline. We then closed the wound in layers using 1 buried stitch of 0 Vicryl to cl ose the fascia joy layer proximally, followed by buried simple stitches of 2-0 Vicryl to approximate the subcutaneous tissues in the proximal 2 incisions. Finally, skin cecil were used to approximate the skin edges of all 3 wounds. A total of 20 mL of 0.5% Marcaine without epinephrine was then used to provide local anesthesia in all of our surgical incision sites. We then dressed the wounds with Xe roform gauze, 4 x 4's, and Tegaderm dressings. The patient was awoken from his anesthetic, then trans ferred off the fracture table onto his bed, and taken to the recovery room in satisfactory condition. ESTIMATED BLOOD LOSS: 100 mL. REPLACEMENT: 1000 mL of crystalloid. INTRAOPERATIVE COMPLICATIONS: None. PLAN: The patient may go weightbearing as tolerated on this left lower extremity. He may go walk, amb ulating as tolerated. He will likely be able to be transferred to a skilled facility for the balance of his postoperative hip rehabilitation in approximately 2 days' time. JOB #: [id number] EXT JOB #:[id number]
[2016-12-07] MEDS: ceFAZolin 2 GM/50 ML 2 GM/50 ML BAG IV SCH (19:00)
[2016-12-07] MEDS: HYDROcod/ACETAM 5/325 MG TABLET PO PRN (21:48)
[2016-12-08] MEDS: ceFAZolin 2 GM/50 ML 2 GM/50 ML BAG IV SCH (02:46)
[2016-12-08] MEDS: HYDROcod/ACETAM 5/325 MG TABLET PO PRN ×2 (02:46→06:54)
[2016-12-08] MEDS: SODIUM CHLORIDE 0.9% 1,000 ML IV SCH ×2 (04:55→14:43)
[2016-12-08] MEDS: SODIUM CHLORIDE FLUSH 0.9% 10 ML SYRINGE IVP SCH ×3 (04:55→21:05)
[2016-12-08 05:27] LABS: BASOPHILS % (AUTO) 0.4 %; EOSINOPHILS % (AUTO) 0.3 %; HCT - HEMATOCRIT 36.7 % (42.0-52.0); HGB - HEMOGLOBIN 12.7 g/dL (14.0-18.0); LYMPHOCYTES # (AUTO) 1.1 10^3/uL (1.5-3.5); LYMPHOCYTES % (AUTO) 12.1 %; MEAN CORPUSCULAR HGB CONC 34.5 g/dL (32.0-36.0); MEAN CORPUSCULAR VOLUME 92.7 fL (80.0-94.0); MEAN PLATELET VOLUME 8.2 fL (7.4-11.4); MONOCYTES # (AUTO) 0.9 10^3/uL (0.0-1.0); MONOCYTES % (AUTO) 9.8 %; NEUTROPHILS # (AUTO) 6.8 10^3/uL (1.5-6.6); NEUTROPHILS % (AUTO) 77.4 %; RED BLOOD COUNT 3.96 10^6/uL (4.70-6.10); RED CELL DISTRIBUTION WIDTH 14.2 % (12.0-15.0); UNCORRECTED WHITE BLOOD COUNT 8.8 x10^3/uL; WHITE BLOOD COUNT 8.8 x10^3/uL (4.8-10.8)
[2016-12-08 05:41] LABS: BILIRUBIN,TOTAL 2.1 mg/dL (0.2-1.0); CALCIUM 7.9 mg/dL (8.5-10.3); CREATININE 0.9 mg/dL (0.6-1.2); POTASSIUM 3.6 mmol/L (3.5-5.0)
--- NOTE | 2016-12-08 08:40 | PROVIDER PROGRESS NOTE ---
Assessment/Plan - Problem List (1) Intertrochanteric fracture of left hip Qualifiers: Encounter type: initial encounter Fracture type: closed Fracture alignment: nondisplaced Qualified Code(s): S72.145A - Nondisplaced intertrochanteric fracture of left femur, initial encounter for closed fracture Assessment/Plan: improved. continue with PT and encourage ambulation. plan to discharge tomorrow if ambulating. monitor CBC for changes to hemoglobin (2) Hearing loss of both ears Qualifiers: Hearing loss type: unspecified Qualified Code(s): H91.93 - Unspecified hearing loss, bilateral Assessment/Plan: chronic. patient is wearing hearing aids (3) Serum total bilirubin elevated Assessment/Plan: improving. he is status post surgery for left hip and not symptomatic. will continue to monitor with daily lab draws - Current Meds Current Meds: Current Medications Generic Name Dose Route Start Last Admin Trade Name Freq PRN Reason Stop Dose Admin Acetaminophen 650 mg 12/06/16 18:32 12/06/16 22:18 Tylenol PO 650 mg Q4HR PRN Administration Pain 1 to 4 Acetaminophen/Hydrocodone Bitart 1 tab 12/06/16 18:32 12/08/16 06:54 [place] 5/325 PO 1 tab Q4HR PRN Administration Pain 5 to 7 Acetaminophen/Hydrocodone Bitart 1 tab 12/06/16 21:33 12/06/16 22:18 [place] 10 Mg/325 Mg PO 1 tab Q4HR PRN Administration PAIN 8-10 Enoxaparin Sodium 40 mg 12/07/16 09:00 12/07/16 07:35 Lovenox SUBQ Not Given DAILY KARRIE Famotidine 20 mg 12/07/16 09:00 12/07/16 07:35 Pepcid PO Not Given DAILY KARRIE Sodium Chloride 1,000 mls @ 100 mls/hr 12/07/16 17:00 12/08/16 04:55 Normal Saline 0.9% IV 100 mls/hr .Q10H KARRIE Administration Polyethylene Glycol 17 gm 12/07/16 09:00 12/07/16 07:35 Miralax PO Not Given DAILY KARRIE Sodium Chloride 10 ml 12/07/16 22:00 12/08/16 04:55 Normal Saline Flush 0.9% IVP Not Given Q8HR KARRIE Tamsulosin HCl 0.4 mg 12/06/16 22:00 12/07/16 07:36 Flomax PO Not Given DAILY KARRIE Zolpidem Tartrate 5 mg 12/06/16 18:32 12/06/16 22:18 Ambien PO 5 mg QPM PRN Administration Insomnia - Lab Result Lab results reviewed: Yes Fish Bone Diagrams: 12/08/16 09:24 12/08/16 05:13 Other Lab Results: Abnormal Lab Results 12/06/16 12/06/16 12/07/16 16:35 17:16 05:09 RBC 4.49 10^6/uL L 10^6/uL 4.26 10^6/uL L 10^6/uL (4.70-6.10) (4.70-6.10) Hgb 13.9 g/dL L g/dL 13.3 g/dL L g/dL (14.0-18.0) (14.0-18.0) Hct 40.0 % L % (42.0-52.0) MCH 31.3 pg H pg (27.0-31.0) Neut # 7.7 10^3/uL H 10^3/uL (1.5-6.6) Lymph # 0.7 10^3/uL L 10^3/uL 1.1 10^3/uL L 10^3/uL (1.5-3.5) (1.5-3.5) Anion Gap BUN 29 mg/dL H mg/dL (6-20) Estimated GFR (MDRD) 73 L (>89) Glucose 125 mg/dL H mg/dL (70-100) Calcium Total Bilirubin Total Protein Albumin 12/07/16 12/08/16 12/08/16 05:09 05:13 05:13 RBC 3.96 10^6/uL L 10^6/uL (4.70-6.10) Hgb 12.7 g/dL L g/dL (14.0-18.0) Hct 36.7 % L % (42.0-52.0) MCH 32.0 pg H pg (27.0-31.0) Neut # 6.8 10^3/uL H 10^3/uL (1.5-6.6) Lymph # 1.1 10^3/uL L 10^3/uL (1.5-3.5) Anion Gap 5.0 L (6-13) BUN 21 mg/dL H mg/dL (6-20) Estimated GFR (MDRD) 73 L 83 L (>89) (>89) Glucose 110 mg/dL H mg/dL 131 mg/dL H mg/dL (70-100) (70-100) Calcium 8.4 mg/dL L mg/dL 7.9 mg/dL L mg/dL (8.5-10.3) (8.5-10.3) Total Bilirubin 3.1 mg/dL H mg/dL 2.1 mg/dL H mg/dL (0.2-1.0) (0.2-1.0) Total Protein 6.5 g/dL L g/dL 6.0 g/dL L g/dL (6.7-8.2) (6.7-8.2) Albumin 3.0 g/dL L g/dL (3.2-5.5) - EKG Results EKG Interpreted Independently: No EKG Comparison: Unchanged from prior EKG - Diagnostic Imaging Results Diagnostic Imaging Results: Final report reviewed - Additional Planning Condition/Complexity: Improved Consult/Specialty: OT, PT, Surgery Plan Discussed with:: Patient Time Spent: 31-60 minutes Additional Planning Notes: Time spent with patient ws 40 minutes for planning and assessment. will plan to discharge in the next 24-48 hours Subjective - Subjective Patient Reports: Feeling Better, Resting Comfortably Nursing Reports: Other (patietn had some mild hypotension and became a little diaphoretic when standing, now improved.) Objective Vital Signs: Vital Signs - 24 hr 12/07/16 12/07/16 12/07/16 08:42 16:11 16:15 Temperature 36.8 C Heart Rate [ 62 Brachial] Respiratory 16 Rate Blood Pressure 127/71 [Right Brachial artery] O2 Saturation 96 100 100 12/07/16 12/07/16 12/07/16 16:20 16:25 16:30 Temperature Heart Rate [ Brachial] Respiratory Rate Blood Pressure [Right Brachial artery] O2 Saturation 100 100 100 12/07/16 12/07/16 12/07/16 16:35 16:49 17:05 Temperature 36.8 C Heart Rate [ 111 H Brachial] Respiratory 18 Rate Blood Pressure 124/77 [Right Brachial artery] O2 Saturation 100 100 97 12/07/16 12/07/16 12/07/16 17:32 18:35 19:35 Temperature 36.8 C 37.6 C H 36.7 C Heart Rate [ 72 79 81 Brachial] Respiratory 18 18 18 Rate Blood Pressure 106/69 120/74 139/81 H [Right Brachial artery] O2 Saturation 100 96 96 12/07/16 12/08/16 12/08/16 23:35 03:00 06:43 Temperature 37.7 C H 37.4 C 37.0 C Heart Rate [ 82 77 72 Brachial] Respiratory 16 16 18 Rate Blood Pressure 133/69 H 109/68 111/72 [Right Brachial artery] O2 Saturation 96 94 94 12/08/16 08:05 Temperature 36.7 C Heart Rate [ 69 Brachial] Respiratory 16 Rate Blood Pressure 113/73 [Right Brachial artery] O2 Saturation 94 Oxygen O2 Source Room air I&O (Last 24 Hrs): Intake and Output Totals x24h 12/06/16 12/07/16 12/08/16 23:59 23:59 23:59 Intake Total 2530.334 1163.333 Output Total 0 1475 750 Balance 0 1055.334 413.333 General: Alert, Oriented x3, Cooperative HEENT: Atraumatic, PERRLA, EOMI Neck: Supple, No JVD Lymphatic: no adenopathy Neuro: Alert, CN 2-12 Grossly Intact, Oriented Times 3 Cardiovascular: Regular rate, Normal S1, Normal S2 Respiratory: Chest non-tender, No respiratory distress, Breath sounds nml Abdomen: Normal bowel sounds, Soft, No tenderness, No hepatospenomegaly, No masses Extremities: No clubbing, No cyanosis, No edema, Normal pulses, Other (left hip with clean dry dressing and mild tenderness with palpation at site) Skin: No rashes, No breakdown, No significant lesion - Results Results: Laboratory Results WBC 8.8 x10^3/uL (4.8-10.8) 12/08/16 05:13 RBC 3.96 10^6/uL (4.70-6.10) L 12/08/16 05:13 Hgb 12.7 g/dL (14.0-18.0) L 12/08/16 05:13 Hct 36.7 % (42.0-52.0) L 12/08/16 05:13 MCV 92.7 fL (80.0-94.0) 12/08/16 05:13 MCH 32.0 pg (27.0-31.0) H 12/08/16 05:13 MCHC 34.5 g/dL (32.0-36.0) 12/08/16 05:13 RDW 14.2 % (12.0-15.0) 12/08/16 05:13 Plt Count 206 10^3/uL (130-450) 12/08/16 05:13 MPV 8.2 fL (7.4-11.4) 12/08/16 05:13 Neut # 6.8 10^3/uL (1.5-6.6) H 12/08/16 05:13 Lymph # 1.1 10^3/uL (1.5-3.5) L 12/08/16 05:13 [place] # 0.9 10^3/uL (0.0-1.0) 12/08/16 05:13 Eos # 0.0 10^3/uL (0.0-0.7) 12/08/16 05:13 Baso # 0.0 10^3/uL (0.0-0.1) 12/08/16 05:13 Absolute Nucleated RBC 0.00 x10^3/uL 12/08/16 05:13 Nucleated RBC % 0.0 /100WBC 12/08/16 05:13 Sodium 136 mmol/L (135-145) 12/08/16 05:13 Potassium 3.6 mmol/L (3.5-5.0) 12/08/16 05:13 Chloride 108 mmol/L (101-111) 12/08/16 05:13 Carbon Dioxide 23 mmol/L (21-32) 12/08/16 05:13 Anion Gap 5.0 (6-13) L 12/08/16 05:13 BUN 15 mg/dL (6-20) 12/08/16 05:13 Creatinine 0.9 mg/dL (0.6-1.2) 12/08/16 05:13 Estimated GFR (MDRD) 83 (>89) L 12/08/16 05:13 Glucose 131 mg/dL (70-100) H 12/08/16 05:13 Calcium 7.9 mg/dL (8.5-10.3) L 12/08/16 05:13 Magnesium 1.8 mg/dL (1.7-2.8) 12/07/16 05:09 Total Bilirubin 2.1 mg/dL (0.2-1.0) H 12/08/16 05:13 AST 26 IU/L (10-42) 12/08/16 05:13 ALT 16 IU/L (10-60) 12/08/16 05:13 Alkaline Phosphatase 81 IU/L (42-121) 12/08/16 05:13 Total Protein 6.0 g/dL (6.7-8.2) L 12/08/16 05:13 Albumin 3.0 g/dL (3.2-5.5) L 12/08/16 05:13 Globulin 3.0 g/dL (2.1-4.2) 12/08/16 05:13 Albumin/Globulin Ratio 1.0 (1.0-2.2) 12/08/16 05:13 Urine Color YELLOW 12/07/16 01:00 Urine Clarity CLEAR (CLEAR) 12/07/16 01:00 Urine pH 6.0 PH (5.0-7.5) 12/07/16 01:00 Ur Specific [place] 1.020 (1.002-1.030) 12/07/16 01:00 Urine Protein NEGATIVE mg/dL (NEGATIVE) 12/07/16 01:00 Urine Glucose (UA) NEGATIVE mg/dL (NEGATIVE) 12/07/16 01:00 Urine Ketones TRACE mg/dL (NEGATIVE) 12/07/16 01:00 Urine Occult Blood NEGATIVE (NEGATIVE) 12/07/16 01:00 Urine Nitrite NEGATIVE (NEGATIVE) 12/07/16 01:00 Urine Bilirubin NEGATIVE (NEGATIVE) 12/07/16 01:00 Urine Urobilinogen 0.2 (NORMAL) E.U./dL (NORMAL) 12/07/16 01:00 Ur Leukocyte Esterase NEGATIVE (NEGATIVE) 12/07/16 01:00 Ur Microscopic Review NOT INDICATED 12/07/16 01:00 Urine Culture Comments NOT INDICATED 12/07/16 01:00 Blood Type O NEGATIVE 12/07/16 05:09 Antibody Screen NEGATIVE 12/07/16 05:09 - Procedures Procedures: Procedures INSPECTION OF LOWER INTESTINAL TRACT, ENDO (02/27/15)
[2016-12-08] MEDS: POLYETHYLENE GLYCOL 3350 17 GM PACKET PO SCH (08:51)
[2016-12-08] MEDS: FAMOTIDINE 20 MG TABLET PO SCH (08:52)
[2016-12-08] MEDS: TAMSULOSIN 0.4 MG CAPSULE PO SCH (08:52)
[2016-12-08] MEDS: ENOXAPARIN 40 MG/0.4 ML SYRINGE SUBQ SCH (08:53)
[2016-12-08 09:33] LABS: HCT - HEMATOCRIT 37.3 % (42.0-52.0); HGB - HEMOGLOBIN 12.7 g/dL (14.0-18.0)
--- NOTE | 2016-12-08 10:56 | PROVIDER PROGRESS NOTE ---
Subjective - Prog Note Date Prog Note Date: 12/08/16 Prog Note Time: 10:54 - Subjective Pt reports feeling: Improved (Minimal hip pain. Lightheaded when upright at bedside) Objective - Vital Signs/Intake & Output Vital Signs: Vital Signs x48h Temp Pulse Pulse Resp BP Pulse Ox 12/08/16 10:45 62 110/64 12/08/16 10:34 66 94/61 12/08/16 10:30 74 86/54 L 12/08/16 10:29 77 87/54 L 12/08/16 10:21 80 111/83 H 12/08/16 08:05 36.7 C 69 16 113/73 94 12/08/16 06:43 37.0 C 72 18 111/72 94 12/08/16 03:00 37.4 C 77 16 109/68 94 Intake & Output: Intake & Output 12/05/16 12/06/16 12/07/16 12/08/16 23:59 23:59 23:59 23:59 Intake Total 2530.334 1523.333 Output Total 0 1475 750 Balance 0 1055.334 773.333 - Lab Results Fish Bones: 12/08/16 09:24 12/08/16 05:13 Other Labs: Lab Results x24hrs 12/08/16 12/08/16 12/08/16 Range/Units 09:24 05:13 05:13 WBC 8.8 (4.8-10.8) x10^3/uL RBC 3.96 L (4.70-6.10) 10^6/uL Hgb 12.7 L 12.7 L (14.0-18.0) g/dL Hct 37.3 L 36.7 L (42.0-52.0) % MCV 92.7 (80.0-94.0) fL MCH 32.0 H (27.0-31.0) pg MCHC 34.5 (32.0-36.0) g/dL RDW 14.2 (12.0-15.0) % Plt Count 206 (130-450) 10^3/uL MPV 8.2 (7.4-11.4) fL Neut # 6.8 H (1.5-6.6) 10^3/uL Lymph # 1.1 L (1.5-3.5) 10^3/uL [place] # 0.9 (0.0-1.0) 10^3/uL Eos # 0.0 (0.0-0.7) 10^3/uL Baso # 0.0 (0.0-0.1) 10^3/uL Absolute Nucleated RBC 0.00 x10^3/uL Nucleated RBC % 0.0 /100WBC Sodium 136 (135-145) mmol/L Potassium 3.6 (3.5-5.0) mmol/L Chloride 108 (101-111) mmol/L Carbon Dioxide 23 (21-32) mmol/L Anion Gap 5.0 L (6-13) BUN 15 (6-20) mg/dL Creatinine 0.9 (0.6-1.2) mg/dL Estimated GFR (MDRD) 83 L (>89) Glucose 131 H (70-100) mg/dL Calcium 7.9 L (8.5-10.3) mg/dL Total Bilirubin 2.1 H (0.2-1.0) mg/dL AST 26 (10-42) IU/L ALT 16 (10-60) IU/L Alkaline Phosphatase 81 (42-121) IU/L Total Protein 6.0 L (6.7-8.2) g/dL Albumin 3.0 L (3.2-5.5) g/dL Globulin 3.0 (2.1-4.2) g/dL Albumin/Globulin Ratio 1.0 (1.0-2.2) - Other Results/Comments Other Results/Comments: EXAM: Dressing intact. Minimal hip tenderness/swelling. MILD PAIN WITH HIP MOTION. N/V OK DISTALLY Assessment/Plan - Problem List (1) Hip fracture Impression: Satis post op PLAN: Mobilize as tolerated. If he does well in PT, he may be able to be discharged home with home PT in several days vs transfer to SNF. Qualifiers: Encounter type: initial encounter Fracture type: closed Laterality: left Qualified Code(s): S72.002A - Fracture of unspecified part of neck of left femur, initial encounter for closed fracture
[2016-12-08] MEDS ORDERED: MAGNESIUM SULFATE 2 GRAM 2 GM/50 ML BAG IV ONE (14:44)
[2016-12-08] MEDS ORDERED: SODIUM CHLORIDE 0.9% 1,000 ML IV ONE (15:21)
[2016-12-08] MEDS ORDERED: TAMSULOSIN 0.4 MG CAPSULE PO STA (15:21)
--- NOTE | 2016-12-08 16:45 | PROVIDER PROGRESS NOTE ---
Assessment/Plan - Problem List (1) Hip fracture Qualifiers: Encounter type: initial encounter Fracture type: closed Laterality: left Qualified Code(s): S72.002A - Fracture of unspecified part of neck of left femur, initial encounter for closed fracture - Current Meds Current Meds: Current Medications Generic Name Dose Route Start Last Admin Trade Name Freq PRN Reason Stop Dose Admin Acetaminophen 650 mg 12/06/16 18:32 12/06/16 22:18 Tylenol PO 650 mg Q4HR PRN Administration Pain 1 to 4 Acetaminophen/Hydrocodone Bitart 1 tab 12/06/16 18:32 12/08/16 06:54 [place] 5/325 PO 1 tab Q4HR PRN Administration Pain 5 to 7 Acetaminophen/Hydrocodone Bitart 1 tab 12/06/16 21:33 12/06/16 22:18 [place] 10 Mg/325 Mg PO 1 tab Q4HR PRN Administration PAIN 8-10 Enoxaparin Sodium 40 mg 12/07/16 09:00 12/08/16 08:53 Lovenox SUBQ 40 mg DAILY KARRIE Administration Famotidine 20 mg 12/07/16 09:00 12/08/16 08:52 Pepcid PO 20 mg DAILY KARRIE Administration Sodium Chloride 1,000 mls @ 100 mls/hr 12/07/16 17:00 12/08/16 14:43 Normal Saline 0.9% IV 100 mls/hr .Q10H KARRIE Administration Polyethylene Glycol 17 gm 12/07/16 09:00 12/08/16 08:51 Miralax PO 17 gm DAILY KARRIE Administration Sodium Chloride 10 ml 12/07/16 22:00 12/08/16 14:44 Normal Saline Flush 0.9% IVP 10 ml Q8HR KARRIE Administration Tamsulosin HCl 0.4 mg 12/06/16 22:00 12/08/16 08:52 Flomax PO 0.4 mg DAILY KARRIE Administration Zolpidem Tartrate 5 mg 12/06/16 18:32 12/06/16 22:18 Ambien PO 5 mg QPM PRN Administration Insomnia - Lab Result Fish Bone Diagrams: 12/08/16 09:24 12/08/16 05:13 - Additional Planning My Orders: My Active Orders 12/07/16 16:15 Activity Orders [RC] QSHIFT IV Line/Site Care [RC] QSHIFT Initiate Standard Care Protocols [OTHERS] Routine Neuro Vascular Check - LE [RC] Q30MX2,Q2HX2,Q4HX2,QSHIFT Straight Catheter Insertion [RC] PRN Social Work Consult [CONS] Routine Acetaminophen 1,000 mg/100 ml [Ofirmev] 100 ml IV Q6HR Docusate Sodium 100Mg Capsule [Colace 100Mg Capsule] 100 mg PO BID PRN Morphine Inj [Morphine] 2 mg IVP Q2HR PRN Ondansetron Inj [Zofran Inj] 4 mg IVP Q6HR PRN Prochlorperazine Inj [Compazine Inj] 10 mg IVP Q6HR PRN Senna [Senokot] 17.2 mg PO Q12H PRN Sodium Chloride Flush 0.9% [Normal Saline Flush 0.9%] 10 ml IVP PRN PRN oxyCODONE/ACET 5/325 [Percocet 5 mg/325 mg] 1 tab PO Q4HR PRN Code Status [OTHERS] Routine Condition of Patient [OTHERS] Routine DVT Prophylaxis [OTHERS] Routine Evaluate and Treat OT [OT] Routine Evaluate and Treat PT [PT] Routine 12/07/16 16:16 Foot Pumps [RC] QSHIFT Initiate Line Care Protocol [RC] .protocol Initiate Personal Care Protoco [RC] .protocol 12/07/16 17:00 Sodium Chloride 0.9% [Normal Saline 0.9%] 1,000 ml IV 100 mls/hr 12/07/16 22:00 Sodium Chloride Flush 0.9% [Normal Saline Flush 0.9%] 10 ml IVP Q8HR 12/08/16 16:15 Daily Dressing Change [RC] DAILY 12/09/16 09:00 HEMOGLOBIN AND HEMATOCRIT [HEME] DAILY Additional Planning Notes: Upon discharge or transfer to SNF, continue PT for walker ambulation - Weight bearing as tolerated on left. Can switch from Lovenox to Enteric coated Aspirin 325 mg po bid x 2 weeks. Follow up on Orthopedic clinic in 2-3 weeks for staple removal and repeat XR. Objective Vital Signs: Vital Signs - 24 hr 12/07/16 12/07/16 12/07/16 16:49 17:05 17:32 Temperature 36.8 C 36.8 C Heart Rate [ Apical] Heart Rate [ 111 H 72 Brachial] Heart Rate [ Supine] Respiratory 18 18 Rate Blood Pressure [Activity] Blood Pressure 124/77 106/69 [Right Brachial artery] Blood Pressure [Sitting] Blood Pressure [Supine] O2 Saturation 100 97 100 12/07/16 12/07/16 12/07/16 18:35 19:35 23:35 Temperature 37.6 C H 36.7 C 37.7 C H Heart Rate [ Apical] Heart Rate [ 79 81 82 Brachial] Heart Rate [ Supine] Respiratory 18 18 16 Rate Blood Pressure [Activity] Blood Pressure 120/74 139/81 H 133/69 H [Right Brachial artery] Blood Pressure [Sitting] Blood Pressure [Supine] O2 Saturation 96 96 96 12/08/16 12/08/16 12/08/16 03:00 06:43 08:05 Temperature 37.4 C 37.0 C 36.7 C Heart Rate [ Apical] Heart Rate [ 77 72 69 Brachial] Heart Rate [ Supine] Respiratory 16 18 16 Rate Blood Pressure [Activity] Blood Pressure 109/68 111/72 113/73 [Right Brachial artery] Blood Pressure [Sitting] Blood Pressure [Supine] O2 Saturation 94 94 94 12/08/16 12/08/16 12/08/16 10:15 10:21 10:29 Temperature Heart Rate [ 80 Apical] Heart Rate [ 77 Brachial] Heart Rate [ 78 Supine] Respiratory Rate Blood Pressure 94/61 [Activity] Blood Pressure 111/83 H 87/54 L [Right Brachial artery] Blood Pressure 87/56 L [Sitting] Blood Pressure 111/83 H [Supine] O2 Saturation 12/08/16 12/08/16 12/08/16 10:30 10:34 10:45 Temperature Heart Rate [ Apical] Heart Rate [ 74 66 62 Brachial] Heart Rate [ Supine] Respiratory Rate Blood Pressure [Activity] Blood Pressure 86/54 L 94/61 110/64 [Right Brachial artery] Blood Pressure [Sitting] Blood Pressure [Supine] O2 Saturation 12/08/16 12/08/16 11:27 15:52 Temperature 36.6 C 37.0 C Heart Rate [ Apical] Heart Rate [ 70 76 Brachial] Heart Rate [ Supine] Respiratory 16 18 Rate Blood Pressure [Activity] Blood Pressure 108/69 112/73 [Right Brachial artery] Blood Pressure [Sitting] Blood Pressure [Supine] O2 Saturation 96 96 Oxygen O2 Source Room air I&O (Last 24 Hrs): Intake and Output Totals x24h 12/06/16 12/07/16 12/08/16 23:59 23:59 23:59 Intake Total 2530.334 3163.333 Output Total 0 1475 1300 Balance 0 3436.069 6661.333 - Results Results: Laboratory Results WBC 8.8 x10^3/uL (4.8-10.8) 12/08/16 05:13 RBC 3.96 10^6/uL (4.70-6.10) L 12/08/16 05:13 Hgb 12.7 g/dL (14.0-18.0) L 12/08/16 09:24 Hct 37.3 % (42.0-52.0) L 12/08/16 09:24 MCV 92.7 fL (80.0-94.0) 12/08/16 05:13 MCH 32.0 pg (27.0-31.0) H 12/08/16 05:13 MCHC 34.5 g/dL (32.0-36.0) 12/08/16 05:13 RDW 14.2 % (12.0-15.0) 12/08/16 05:13 Plt Count 206 10^3/uL (130-450) 12/08/16 05:13 MPV 8.2 fL (7.4-11.4) 12/08/16 05:13 Neut # 6.8 10^3/uL (1.5-6.6) H 12/08/16 05:13 Lymph # 1.1 10^3/uL (1.5-3.5) L 12/08/16 05:13 [place] # 0.9 10^3/uL (0.0-1.0) 12/08/16 05:13 Eos # 0.0 10^3/uL (0.0-0.7) 12/08/16 05:13 Baso # 0.0 10^3/uL (0.0-0.1) 12/08/16 05:13 Absolute Nucleated RBC 0.00 x10^3/uL 12/08/16 05:13 Nucleated RBC % 0.0 /100WBC 12/08/16 05:13 Sodium 136 mmol/L (135-145) 12/08/16 05:13 Potassium 3.6 mmol/L (3.5-5.0) 12/08/16 05:13 Chloride 108 mmol/L (101-111) 12/08/16 05:13 Carbon Dioxide 23 mmol/L (21-32) 12/08/16 05:13 Anion Gap 5.0 (6-13) L 12/08/16 05:13 BUN 15 mg/dL (6-20) 12/08/16 05:13 Creatinine 0.9 mg/dL (0.6-1.2) 12/08/16 05:13 Estimated GFR (MDRD) 83 (>89) L 12/08/16 05:13 Glucose 131 mg/dL (70-100) H 12/08/16 05:13 Calcium 7.9 mg/dL (8.5-10.3) L 12/08/16 05:13 Magnesium 1.8 mg/dL (1.7-2.8) 12/07/16 05:09 Total Bilirubin 2.1 mg/dL (0.2-1.0) H 12/08/16 05:13 AST 26 IU/L (10-42) 12/08/16 05:13 ALT 16 IU/L (10-60) 12/08/16 05:13 Alkaline Phosphatase 81 IU/L (42-121) 12/08/16 05:13 Total Protein 6.0 g/dL (6.7-8.2) L 12/08/16 05:13 Albumin 3.0 g/dL (3.2-5.5) L 12/08/16 05:13 Globulin 3.0 g/dL (2.1-4.2) 12/08/16 05:13 Albumin/Globulin Ratio 1.0 (1.0-2.2) 12/08/16 05:13 Urine Color YELLOW 12/07/16 01:00 Urine Clarity CLEAR (CLEAR) 12/07/16 01:00 Urine pH 6.0 PH (5.0-7.5) 12/07/16 01:00 Ur Specific [place] 1.020 (1.002-1.030) 12/07/16 01:00 Urine Protein NEGATIVE mg/dL (NEGATIVE) 12/07/16 01:00 Urine Glucose (UA) NEGATIVE mg/dL (NEGATIVE) 12/07/16 01:00 Urine Ketones TRACE mg/dL (NEGATIVE) 12/07/16 01:00 Urine Occult Blood NEGATIVE (NEGATIVE) 12/07/16 01:00 Urine Nitrite NEGATIVE (NEGATIVE) 12/07/16 01:00 Urine Bilirubin NEGATIVE (NEGATIVE) 12/07/16 01:00 Urine Urobilinogen 0.2 (NORMAL) E.U./dL (NORMAL) 12/07/16 01:00 Ur Leukocyte Esterase NEGATIVE (NEGATIVE) 12/07/16 01:00 Ur Microscopic Review NOT INDICATED 12/07/16 01:00 Urine Culture Comments NOT INDICATED 12/07/16 01:00 Blood Type O NEGATIVE 12/07/16 05:09 Antibody Screen NEGATIVE 12/07/16 05:09 - Procedures Procedures: Procedures INSPECTION OF LOWER INTESTINAL TRACT, ENDO (02/27/15)
[2016-12-09] MEDS: SODIUM CHLORIDE 0.9% 1,000 ML IV SCH ×2 (00:01→13:45)
[2016-12-09] MEDS: HYDROcod/ACETAM 5/325 MG TABLET PO PRN ×3 (00:06→18:55)
[2016-12-09] MEDS: SODIUM CHLORIDE FLUSH 0.9% 10 ML SYRINGE IVP SCH ×3 (03:04→18:57)
[2016-12-09 04:45] LABS: BASOPHILS % (AUTO) 0.5 %; EOSINOPHILS # (AUTO) 0.2 10^3/uL (0.0-0.7); EOSINOPHILS % (AUTO) 2.3 %; HCT - HEMATOCRIT 32.9 % (42.0-52.0); HGB - HEMOGLOBIN 11.2 g/dL (14.0-18.0); LYMPHOCYTES # (AUTO) 1.2 10^3/uL (1.5-3.5); LYMPHOCYTES % (AUTO) 16.9 %; MEAN CORPUSCULAR HEMOGLOBIN 31.9 pg (27.0-31.0); MEAN CORPUSCULAR VOLUME 93.7 fL (80.0-94.0); MEAN PLATELET VOLUME 7.9 fL (7.4-11.4); MONOCYTES # (AUTO) 0.6 10^3/uL (0.0-1.0); MONOCYTES % (AUTO) 8.5 %; NEUTROPHILS % (AUTO) 71.8 %; RED BLOOD COUNT 3.51 10^6/uL (4.70-6.10); RED CELL DISTRIBUTION WIDTH 14.3 % (12.0-15.0)
[2016-12-09 04:55] LABS: BILIRUBIN,TOTAL 1.7 mg/dL (0.2-1.0); CALCIUM 7.6 mg/dL (8.5-10.3); TOTAL PROTEIN 5.8 g/dL (6.7-8.2)
[2016-12-09] MEDS ORDERED: ONDANSETRON ODT 4 MG TABLET TL PRN (07:23)
[2016-12-09] MEDS ORDERED: traMADol 50 MG TABLET PO PRN (07:23)
--- NOTE | 2016-12-09 07:28 | PROVIDER PROGRESS NOTE ---
Assessment/Plan - Problem List (1) Intertrochanteric fracture of left hip Qualifiers: Encounter type: initial encounter Fracture type: closed Fracture alignment: nondisplaced Qualified Code(s): S72.145A - Nondisplaced intertrochanteric fracture of left femur, initial encounter for closed fracture Assessment/Plan: improving. continue with PT daily. fall precautions. continue with pain medications as needed. patient may go to rehab if not stable walking with PT. continue with lovenox and then will transition to aspirin 325mg PO for 2 weeks per ortho notes. pain control with oral and stopped IV morphine. continue with fall precautions. (2) Hearing loss of both ears Qualifiers: Hearing loss type: unspecified Qualified Code(s): H91.93 - Unspecified hearing loss, bilateral (3) Serum total bilirubin elevated Assessment/Plan: improving. will continue to monitor with daily lab draws. - Current Meds Current Meds: Current Medications Generic Name Dose Route Start Last Admin Trade Name Freq PRN Reason Stop Dose Admin Acetaminophen 650 mg 12/06/16 18:32 12/06/16 22:18 Tylenol PO 650 mg Q4HR PRN Administration Pain 1 to 4 Acetaminophen/Hydrocodone Bitart 1 tab 12/06/16 18:32 12/09/16 06:34 [place] 5/325 PO 1 tab Q4HR PRN Administration Pain 5 to 7 Acetaminophen/Hydrocodone Bitart 1 tab 12/06/16 21:33 12/06/16 22:18 [place] 10 Mg/325 Mg PO 1 tab Q4HR PRN Administration PAIN 8-10 Docusate Sodium 100 mg 12/07/16 16:15 12/09/16 06:34 Colace 100mg Capsule PO 100 mg BID PRN Administration Constipation Enoxaparin Sodium 40 mg 12/07/16 09:00 12/08/16 08:53 Lovenox SUBQ 40 mg DAILY KARRIE Administration Famotidine 20 mg 12/07/16 09:00 12/08/16 08:52 Pepcid PO 20 mg DAILY KARRIE Administration Sodium Chloride 1,000 mls @ 100 mls/hr 12/07/16 17:00 12/09/16 00:01 Normal Saline 0.9% IV 100 mls/hr .Q10H KARRIE Administration Polyethylene Glycol 17 gm 12/07/16 09:00 12/08/16 08:51 Miralax PO 17 gm DAILY KARRIE Administration Sodium Chloride 10 ml 12/07/16 22:00 12/09/16 03:04 Normal Saline Flush 0.9% IVP Not Given Q8HR KARRIE Tamsulosin HCl 0.4 mg 12/06/16 22:00 12/08/16 08:52 Flomax PO 0.4 mg DAILY KARRIE Administration Zolpidem Tartrate 5 mg 12/06/16 18:32 12/06/16 22:18 Ambien PO 5 mg QPM PRN Administration Insomnia - Lab Result Lab results reviewed: Yes Fish Bone Diagrams: 12/09/16 04:36 12/09/16 04:36 Other Lab Results: Abnormal Lab Results 12/08/16 12/08/16 12/08/16 05:13 05:13 09:24 RBC 3.96 10^6/uL L 10^6/uL (4.70-6.10) Hgb 12.7 g/dL L g/dL 12.7 g/dL L g/dL (14.0-18.0) (14.0-18.0) Hct 36.7 % L % 37.3 % L % (42.0-52.0) (42.0-52.0) MCH 32.0 pg H pg (27.0-31.0) Neut # 6.8 10^3/uL H 10^3/uL (1.5-6.6) Lymph # 1.1 10^3/uL L 10^3/uL (1.5-3.5) Anion Gap 5.0 L (6-13) Estimated GFR (MDRD) 83 L (>89) Glucose 131 mg/dL H mg/dL (70-100) Calcium 7.9 mg/dL L mg/dL (8.5-10.3) Total Bilirubin 2.1 mg/dL H mg/dL (0.2-1.0) Total Protein 6.0 g/dL L g/dL (6.7-8.2) Albumin 3.0 g/dL L g/dL (3.2-5.5) 12/09/16 12/09/16 04:36 04:36 RBC 3.51 10^6/uL L 10^6/uL (4.70-6.10) Hgb 11.2 g/dL L g/dL (14.0-18.0) Hct 32.9 % L % (42.0-52.0) MCH 31.9 pg H pg (27.0-31.0) Neut # Lymph # 1.2 10^3/uL L 10^3/uL (1.5-3.5) Anion Gap Estimated GFR (MDRD) 73 L (>89) Glucose 107 mg/dL H mg/dL (70-100) Calcium 7.6 mg/dL L mg/dL (8.5-10.3) Total Bilirubin 1.7 mg/dL H mg/dL (0.2-1.0) Total Protein 5.8 g/dL L g/dL (6.7-8.2) Albumin 2.9 g/dL L g/dL (3.2-5.5) - EKG Results EKG Interpreted Independently: No - Diagnostic Imaging Results Diagnostic Imaging Results: Final report reviewed - Additional Planning Condition/Complexity: Improved My Orders: My Active Orders 12/09/16 07:23 Ondansetron Odt [Zofran Odt] 4 mg TL Q4HR PRN traMADol [Ultram] 50 mg PO Q4HR PRN 12/09/16 08:00 Calcium Carbonate [Tums] 500 mg PO BID Cholecalciferol [Vitamin D3] 5,000 unit PO DAILY Consult/Specialty: OT, PT, Surgery Plan Discussed with:: Patient, Case Management (plan to discharge home or to rehab in next 24 hours.) Time Spent: 31-60 minutes Subjective - Subjective Patient Reports: Feeling Better, No Complaints, Pain (controlled) Nursing Reports: No Complaints (patient still wanting to be going home with physical therapy coming to the home) Objective Vital Signs: Vital Signs - 24 hr 12/08/16 12/08/16 12/08/16 08:05 10:15 10:21 Temperature 36.7 C Heart Rate [ 80 Apical] Heart Rate [ 69 Brachial] Heart Rate [ 78 Supine] Respiratory 16 Rate Blood Pressure 94/61 [Activity] Blood Pressure 113/73 111/83 H [Right Brachial artery] Blood Pressure 87/56 L [Sitting] Blood Pressure 111/83 H [Supine] O2 Saturation 94 12/08/16 12/08/16 12/08/16 10:29 10:30 10:34 Temperature Heart Rate [ Apical] Heart Rate [ 77 74 66 Brachial] Heart Rate [ Supine] Respiratory Rate Blood Pressure [Activity] Blood Pressure 87/54 L 86/54 L 94/61 [Right Brachial artery] Blood Pressure [Sitting] Blood Pressure [Supine] O2 Saturation 12/08/16 12/08/16 12/08/16 10:45 11:27 15:52 Temperature 36.6 C 37.0 C Heart Rate [ Apical] Heart Rate [ 62 70 76 Brachial] Heart Rate [ Supine] Respiratory 16 18 Rate Blood Pressure [Activity] Blood Pressure 110/64 108/69 112/73 [Right Brachial artery] Blood Pressure [Sitting] Blood Pressure [Supine] O2 Saturation 96 96 12/08/16 23:59 Temperature 37.5 C Heart Rate [ Apical] Heart Rate [ 80 Brachial] Heart Rate [ Supine] Respiratory 18 Rate Blood Pressure [Activity] Blood Pressure 121/78 [Right Brachial artery] Blood Pressure [Sitting] Blood Pressure [Supine] O2 Saturation 96 Oxygen O2 Source Room air I&O (Last 24 Hrs): Intake and Output Totals x24h 12/07/16 12/08/16 12/09/16 23:59 23:59 23:59 Intake Total 2530.334 4453.333 1055 Output Total 1475 1800 1050 Balance 8394.546 0165.333 5 General: Alert, Oriented x3, Cooperative, No acute distress HEENT: Atraumatic, PERRLA, EOMI Neck: Supple, No JVD, No thyromegaly Lymphatic: no adenopathy Neuro: Alert, CN 2-12 Grossly Intact, Oriented Times 3 Cardiovascular: Regular rate, Normal S1, Normal S2 Respiratory: Chest non-tender, No respiratory distress, Breath sounds nml Abdomen: Soft, No tenderness, No hepatospenomegaly, No masses Extremities: No clubbing, No cyanosis, No edema, Normal pulses, Other (clean dry dressing on left hip) Skin: No rashes, No breakdown, No significant lesion - Results Results: Laboratory Results WBC 7.0 x10^3/uL (4.8-10.8) 12/09/16 04:36 RBC 3.51 10^6/uL (4.70-6.10) L 12/09/16 04:36 Hgb 11.2 g/dL (14.0-18.0) L 12/09/16 04:36 Hct 32.9 % (42.0-52.0) L 12/09/16 04:36 MCV 93.7 fL (80.0-94.0) 12/09/16 04:36 MCH 31.9 pg (27.0-31.0) H 12/09/16 04:36 MCHC 34.0 g/dL (32.0-36.0) 12/09/16 04:36 RDW 14.3 % (12.0-15.0) 12/09/16 04:36 Plt Count 171 10^3/uL (130-450) 12/09/16 04:36 MPV 7.9 fL (7.4-11.4) 12/09/16 04:36 Neut # 5.0 10^3/uL (1.5-6.6) 12/09/16 04:36 Lymph # 1.2 10^3/uL (1.5-3.5) L 12/09/16 04:36 [place] # 0.6 10^3/uL (0.0-1.0) 12/09/16 04:36 Eos # 0.2 10^3/uL (0.0-0.7) 12/09/16 04:36 Baso # 0.0 10^3/uL (0.0-0.1) 12/09/16 04:36 Absolute Nucleated RBC 0.00 x10^3/uL 12/09/16 04:36 Nucleated RBC % 0.0 /100WBC 12/09/16 04:36 Sodium 138 mmol/L (135-145) 12/09/16 04:36 Potassium 4.0 mmol/L (3.5-5.0) 12/09/16 04:36 Chloride 109 mmol/L (101-111) 12/09/16 04:36 Carbon Dioxide 23 mmol/L (21-32) 12/09/16 04:36 Anion Gap 6.0 (6-13) 12/09/16 04:36 BUN 15 mg/dL (6-20) 12/09/16 04:36 Creatinine 1.0 mg/dL (0.6-1.2) 12/09/16 04:36 Estimated GFR (MDRD) 73 (>89) L 12/09/16 04:36 Glucose 107 mg/dL (70-100) H 12/09/16 04:36 Calcium 7.6 mg/dL (8.5-10.3) L 12/09/16 04:36 Magnesium 1.8 mg/dL (1.7-2.8) 12/07/16 05:09 Total Bilirubin 1.7 mg/dL (0.2-1.0) H 12/09/16 04:36 AST 22 IU/L (10-42) 12/09/16 04:36 ALT 17 IU/L (10-60) 12/09/16 04:36 Alkaline Phosphatase 76 IU/L (42-121) 12/09/16 04:36 Total Protein 5.8 g/dL (6.7-8.2) L 12/09/16 04:36 Albumin 2.9 g/dL (3.2-5.5) L 12/09/16 04:36 Globulin 2.9 g/dL (2.1-4.2) 12/09/16 04:36 Albumin/Globulin Ratio 1.0 (1.0-2.2) 12/09/16 04:36 Urine Color YELLOW 12/07/16 01:00 Urine Clarity CLEAR (CLEAR) 12/07/16 01:00 Urine pH 6.0 PH (5.0-7.5) 12/07/16 01:00 Ur Specific [place] 1.020 (1.002-1.030) 12/07/16 01:00 Urine Protein NEGATIVE mg/dL (NEGATIVE) 12/07/16 01:00 Urine Glucose (UA) NEGATIVE mg/dL (NEGATIVE) 12/07/16 01:00 Urine Ketones TRACE mg/dL (NEGATIVE) 12/07/16 01:00 Urine Occult Blood NEGATIVE (NEGATIVE) 12/07/16 01:00 Urine Nitrite NEGATIVE (NEGATIVE) 12/07/16 01:00 Urine Bilirubin NEGATIVE (NEGATIVE) 12/07/16 01:00 Urine Urobilinogen 0.2 (NORMAL) E.U./dL (NORMAL) 12/07/16 01:00 Ur Leukocyte Esterase NEGATIVE (NEGATIVE) 12/07/16 01:00 Ur Microscopic Review NOT INDICATED 12/07/16 01:00 Urine Culture Comments NOT INDICATED 12/07/16 01:00 Blood Type O NEGATIVE 12/07/16 05:09 Antibody Screen NEGATIVE 12/07/16 05:09 - Procedures Procedures: Procedures INSPECTION OF LOWER INTESTINAL TRACT, ENDO (02/27/15)
[2016-12-09] MEDS: TAMSULOSIN 0.4 MG CAPSULE PO SCH (08:45)
[2016-12-09] MEDS: CHOLECALCIFEROL 5,000 UNIT CAPSULE PO SCH ×2 (08:45→08:55)
[2016-12-09] MEDS: CALCIUM CARBONATE CHEW 500 MG TABLET PO SCH ×3 (08:45→18:57)
[2016-12-09] MEDS: POLYETHYLENE GLYCOL 3350 17 GM PACKET PO SCH (08:53)
[2016-12-09] MEDS: FAMOTIDINE 20 MG TABLET PO SCH (08:55)
[2016-12-09] MEDS: ENOXAPARIN 40 MG/0.4 ML SYRINGE SUBQ SCH (08:55)
[2016-12-09 09:11] LABS: HCT - HEMATOCRIT 35.3 % (42.0-52.0); HGB - HEMOGLOBIN 12.1 g/dL (14.0-18.0)
--- NOTE | 2016-12-09 13:29 | PROVIDER PROGRESS NOTE ---
Subjective - Prog Note Date Prog Note Date: 12/09/16 Prog Note Time: 13:26 - Subjective Pt reports feeling: Improved Objective - Vital Signs/Intake & Output Vital Signs: Vital Signs x48h Temp Pulse Resp BP Pulse Ox 12/09/16 11:41 37.0 C 71 18 114/69 94 12/09/16 07:30 127/71 Intake & Output: Intake & Output 12/06/16 12/07/16 12/08/16 12/09/16 23:59 23:59 23:59 23:59 Intake Total 2530.334 4453.333 2615 Output Total 0 1475 1800 1050 Balance 0 1906.022 6732.333 1565 - Lab Results Fish Bones: 12/09/16 09:06 12/09/16 04:36 Other Labs: Lab Results x24hrs 12/09/16 12/09/16 12/09/16 Range/Units 09:06 04:36 04:36 WBC 7.0 (4.8-10.8) x10^3/uL RBC 3.51 L (4.70-6.10) 10^6/uL Hgb 12.1 L 11.2 L (14.0-18.0) g/dL Hct 35.3 L 32.9 L (42.0-52.0) % MCV 93.7 (80.0-94.0) fL MCH 31.9 H (27.0-31.0) pg MCHC 34.0 (32.0-36.0) g/dL RDW 14.3 (12.0-15.0) % Plt Count 171 (130-450) 10^3/uL MPV 7.9 (7.4-11.4) fL Neut # 5.0 (1.5-6.6) 10^3/uL Lymph # 1.2 L (1.5-3.5) 10^3/uL [place] # 0.6 (0.0-1.0) 10^3/uL Eos # 0.2 (0.0-0.7) 10^3/uL Baso # 0.0 (0.0-0.1) 10^3/uL Absolute Nucleated RBC 0.00 x10^3/uL Nucleated RBC % 0.0 /100WBC Sodium 138 (135-145) mmol/L Potassium 4.0 (3.5-5.0) mmol/L Chloride 109 (101-111) mmol/L Carbon Dioxide 23 (21-32) mmol/L Anion Gap 6.0 (6-13) BUN 15 (6-20) mg/dL Creatinine 1.0 (0.6-1.2) mg/dL Estimated GFR (MDRD) 73 L (>89) Glucose 107 H (70-100) mg/dL Calcium 7.6 L (8.5-10.3) mg/dL Total Bilirubin 1.7 H (0.2-1.0) mg/dL AST 22 (10-42) IU/L ALT 17 (10-60) IU/L Alkaline Phosphatase 76 (42-121) IU/L Total Protein 5.8 L (6.7-8.2) g/dL Albumin 2.9 L (3.2-5.5) g/dL Globulin 2.9 (2.1-4.2) g/dL Albumin/Globulin Ratio 1.0 (1.0-2.2) - Other Results/Comments Other Results/Comments: EXAM: Sitting up in chair without any probnlem. Was up to shower. Dressing intact. Moving toes well. Sensation intact. Assessment/Plan - Problem List (1) Hip fracture Impression: Doing well post op PLAN: Work on stairs in PT this afternoon. Likely discharge home with home PT Tuesday. Follow up in 2 weeks in orthopedic clinic. Qualifiers: Encounter type: initial encounter Fracture type: closed Laterality: left Qualified Code(s): S72.002A - Fracture of unspecified part of neck of left femur, initial encounter for closed fracture
[2016-12-10 04:18] LABS: ALBUMIN/GLOBULIN RATIO 0.9 (1.0-2.2); BILIRUBIN,TOTAL 1.5 mg/dL (0.2-1.0); CALCIUM 8.1 mg/dL (8.5-10.3); CREATININE 0.8 mg/dL (0.6-1.2); POTASSIUM 4.1 mmol/L (3.5-5.0); TOTAL PROTEIN 5.8 g/dL (6.7-8.2)
[2016-12-10 04:19] LABS: BASOPHILS % (AUTO) 0.6 %; EOSINOPHILS # (AUTO) 0.2 10^3/uL (0.0-0.7); EOSINOPHILS % (AUTO) 3.9 %; HCT - HEMATOCRIT 32.4 % (42.0-52.0); HGB - HEMOGLOBIN 10.9 g/dL (14.0-18.0); LYMPHOCYTES # (AUTO) 1.1 10^3/uL (1.5-3.5); LYMPHOCYTES % (AUTO) 17.7 %; MEAN CORPUSCULAR HEMOGLOBIN 31.6 pg (27.0-31.0); MEAN CORPUSCULAR HGB CONC 33.8 g/dL (32.0-36.0); MEAN CORPUSCULAR VOLUME 93.3 fL (80.0-94.0); MEAN PLATELET VOLUME 8.1 fL (7.4-11.4); MONOCYTES # (AUTO) 0.6 10^3/uL (0.0-1.0); MONOCYTES % (AUTO) 9.2 %; NEUTROPHILS # (AUTO) 4.2 10^3/uL (1.5-6.6); NEUTROPHILS % (AUTO) 68.6 %; NUCLEATED RED BLOOD CELLS AUTO 0.1 /100WBC; RED BLOOD COUNT 3.47 10^6/uL (4.70-6.10); RED CELL DISTRIBUTION WIDTH 14.1 % (12.0-15.0); UNCORRECTED WHITE BLOOD COUNT 6.1 x10^3/uL; WHITE BLOOD COUNT 6.1 x10^3/uL (4.8-10.8)
[2016-12-10] MEDS: SODIUM CHLORIDE FLUSH 0.9% 10 ML SYRINGE IVP SCH (06:11)
--- NOTE | 2016-12-10 07:31 | DISCHARGE SUMMARY ---
"Discharge Summary Admit Date: 12/06/16 Discharge Date: 12/10/16 Discharging Provider: BONIFACIO KRAMER APRN Code Status: Attempt Resuscitation Condition at Discharge: Good Discharge Disposition: 01 Home, Self Care Discharge Facility Name: HOME - DIAGNOSES Admission Diagnoses: 1. ACUTE FALL AT HOME WITH LEFT HIP PAIN AND GAIT INSTABILITY 2. ACUTE RIGHT HIP INTERTROCHANTIC DISPLACED CLOSED FRACTURE 3. CHRONIC HEARING LOSS Discharge Diagnoses with Status of Each Condition: 1. ACUTE FALL AT HOME WITH LEFT HIP PAIN AND GAIT INSTABILITY 2. ACUTE INTERTROCHANTIC DISPLACED CLOSED FRACTURE OF LEFT HIP WITH NAIL PINNING 3. CHRONIC HEARING LOSS BILATERALLY - HPI History of Present Illness: History of Present Illness HPI Comment/Other: this is 75-year-old [place] male with a significant medical history of chronic hearing loss, previous head injury, present ER for evaluation of left hip injury. Pt state stumbles and fall at concrete floor at his car garage. His left hip hit the floor, he feels pain immediately at left hip. Patient denies other injuries and other complains. Xray reveal pt had left hip non-displaced intertrochanteric femur fracture. Dr. Zapata was called at ER, and pt will have surgery on tomorrow. The lab tests in ER are unremarkable. - CONSULTS | PROCEDURES Consultations: ORTHO SURGERY- DR ZAPATA Procedures: NAIL PINNING OF LEFT INTERTROCHANTER OF HIP FOR DISPLACED FRACTURE - HOSPITAL COURSE Hospital Course: Patient was admitted for acute fall onto left hip with pain and closed fracture. hospital course and treatment was as follows: 1. ACUTE FALL AT HOME WITH LEFT HIP PAIN AND GAIT INSTABILITY Patient was admitted on fall precautions. He was on bedrest. He will have PT and OT after surgical evaluation. Ortho has been consulted. Morphine IV for pain. Zofran IV for nausea 2. ACUTE INTERTROCHANTIC DISPLACED CLOSED FRACTURE OF LEFT HIP WITH NAIL PINNING Patient went to surgery with Dr Zapata and his fracture was pinned. He tolerated the procedure well. See notes from Dr Zapata regarding surgery procedures. He was on IV pain medications and then treansitioned to oral to go home. He worked with PT for ambulation. He was sent home with wheeled walker and with home PT. 3. CHRONIC HEARING LOSS BILATERALLY Patient had his hearing aids with him to help hear. 4. DVT prophylaxis was with Lovenox and SCD. He was transitioned to aspirin by Dr Zapata for two weeks to avoid blood clots. Status: patient remained a full code status He was counseled on the importance of healinghip fractures and safety in the home. He was instructed to see ortho in 2 weeks and to take aspirin as a antiembolism medications. He verbally understood all intstructions given. He was safely discharged home with PT - ALLERGIES Allergies/Adverse Reactions: Allergies Allergy/AdvReac Type Severity Reaction Status Date / Time No Known Drug Allergies Allergy Verified 06/05/13 10:09 - MEDICATIONS Home Medications: Ambulatory Orders Medication Instructions Recorded Confirmed Aspirin [Kailee Chewable Aspirin] 81 mg DAILY 03/10/15 03/10/15 Multivitamin [Multivitamins] 1 tab DAILY 03/10/15 03/10/15 Polyethylene Glycol 3350 [Miralax] 17 gm PO DAILY #10 packet 12/10/16 traMADol [Ultram] 50 mg PO Q4HR PRN #30 tablet 12/10/16 - PHYSICAL EXAM AT DISCHARGE General Appearance: positive: No acute distress, Alert Eyes Bilateral: positive: PERRL, EOMI ENT: positive: ENT inspection nml, Pharynx nml, No signs of dehydration Neck: positive: Nml inspection, Thyroid nml, No JVD, Trachea midline Respiratory: positive: Chest non-tender, No respiratory distress, Breath sounds nml Cardiovascular: positive: Regular rate & rhythm, No murmur, No gallop Peripheral Pulses: positive: 2+ Abdomen: positive: Non-tender, No organomegaly, Nml bowel sounds, No distention Back: positive: Nml inspection Skin: positive: Color nml, No rash, Warm, Dry Extremities: positive: Non-tender, Full ROM, Nml appearance, No pedal edema Reflexes: Knee (R): 2+, Knee (L): 2+ - LABS Result Diagrams: 12/10/16 03:55 12/10/16 03:55 Other Lab Results: Abnormal Lab Results 12/08/16 12/09/16 12/09/16 09:24 04:36 04:36 RBC 3.51 10^6/uL L 10^6/uL (4.70-6.10) Hgb 12.7 g/dL L g/dL 11.2 g/dL L g/dL (14.0-18.0) (14.0-18.0) Hct 37.3 % L % 32.9 % L % (42.0-52.0) (42.0-52.0) MCH 31.9 pg H pg (27.0-31.0) Lymph # 1.2 10^3/uL L 10^3/uL (1.5-3.5) Estimated GFR (MDRD) 73 L (>89) Glucose 107 mg/dL H mg/dL (70-100) Calcium 7.6 mg/dL L mg/dL (8.5-10.3) Total Bilirubin 1.7 mg/dL H mg/dL (0.2-1.0) Total Protein 5.8 g/dL L g/dL (6.7-8.2) Albumin 2.9 g/dL L g/dL (3.2-5.5) Albumin/Globulin Ratio 12/09/16 12/10/16 12/10/16 09:06 03:55 03:55 RBC 3.47 10^6/uL L 10^6/uL (4.70-6.10) Hgb 12.1 g/dL L g/dL 10.9 g/dL L g/dL (14.0-18.0) (14.0-18.0) Hct 35.3 % L % 32.4 % L % (42.0-52.0) (42.0-52.0) MCH 31.6 pg H pg (27.0-31.0) Lymph # 1.1 10^3/uL L 10^3/uL (1.5-3.5) Estimated GFR (MDRD) Glucose 106 mg/dL H mg/dL (70-100) Calcium 8.1 mg/dL L mg/dL (8.5-10.3) Total Bilirubin 1.5 mg/dL H mg/dL (0.2-1.0) Total Protein 5.8 g/dL L g/dL (6.7-8.2) Albumin 2.8 g/dL L g/dL (3.2-5.5) Albumin/Globulin Ratio 0.9 L (1.0-2.2) - DIAGNOSTIC IMAGING Diagnostic Imaging Results: Final report reviewed - FOLLOW UP Follow Up: PATIENT WAS INSTRUCTED TO SEE ORTHO IN [address] ZAPATA HE IS TO SEE HIS PRIMARY CARE PROVIDER IN 1-2 FROM DISCHARGE - TIME SPENT Time Spent in Discharge (Minutes): 45 (FOR DISCHARGE PLANNING AND ASSESSMENT)"
--- NOTE | 2016-12-10 07:40 | Discharge Plan ---
Discharge Plan Disposition: Home, Self Care Condition: Good Prescriptions: traMADol [Ultram] 50 mg PO Q4HR PRN #30 tablet PRN Reason: Pain Polyethylene Glycol 3350 [Miralax] 17 gm PO DAILY #10 packet Diet: Cardiac Activity Restrictions: Activity as Tolerated Shower Restrictions: Yes (NOT TO GET INCISION WET ON HIP) Driving Restrictions: Yes (TILL NOT TAKING PAIN MEDICATIONS) Assistance Devices: Cane Weight Bearing: Full Weight Instruction Topics: Falls Prevent Home, Falls Prevent Stay Active Additional Instructions or Follow Up instructions: CONTINUE TO TAKE HOME MEDICATIONS PRESCRIBED. YOU HAVE BEEN GIVEN A PRESCRIPTION FOR PAIN-ULTRAM 50MG. TAKE EVERY 4 HOURS NEEDED FOR PAIN. TAKE MIRALAX DAILY SINCE PAIN MEDICATIONS CAN SOMETIMES CAUSE CONSTIPATION PLEASE TAKE AN ASPIRIN 325MG FOR TWO WEEKS. BE SURE TO CHEW IT AND NOT SWALLOW. THIS WILL HELP TO AVOID BLOOD CLOTS. EAT A HEART HEALTHY DIET AND BE SURE TO GET EXERCISE DAILY. THIS WILL HELP TO AVOID BLOOD CLOTS. CONTINUE TO SEE YOUR PRIMARY CARE PROVIDER AND ORTHOPEDIC SCHEDULED. YOU WILL NEED TO SEE ORTHO IN 2 WEEKS. SEE YOUR REGULAR DOCTOR IN 1-2 DAYS FROM DISCHARGE OR AT THE EARLIEST. YOU WILL NEED TO CALL FOR APPOINTMENT AND TELL THEM YOU WERE JUST IN THE HOSPITAL. RETURN TO THE ER IF YOU HAVE WORSE SYMPTOMS, SHORT OF BREATH OR CHEST PAIN. OR CALL [phone] Follow-Up Care: Outpatient Rehab - PT No Smoking: If you smoke, Please STOP! Call for help. Follow-up with: Frankie Amaro MD [Primary Care Provider] -
[2016-12-10 07:53] VITALS: BP 127/76
[2016-12-10] MEDS: CHOLECALCIFEROL 5,000 UNIT CAPSULE PO SCH (09:22)
[2016-12-10] MEDS: TAMSULOSIN 0.4 MG CAPSULE PO SCH (09:22)
[2016-12-10] MEDS: FAMOTIDINE 20 MG TABLET PO SCH (09:22)
[2016-12-10] MEDS: ENOXAPARIN 40 MG/0.4 ML SYRINGE SUBQ SCH (09:23)
[2016-12-10] MEDS: CALCIUM CARBONATE CHEW 500 MG TABLET PO SCH (09:26)
[2016-12-10] MEDS: POLYETHYLENE GLYCOL 3350 17 GM PACKET PO SCH (09:26)
== END 2016-12-10 12:30 | disposition home or self-care (01) | DRG 482 ==
LOC: ED 16:06 → MS3 18:32
PROVIDERS: ADMIT Nurse Practitioner Gerontology; ATTEND Nurse Practitioner
PROC: 0QS736Z Reposition Left Upper Femur with Intramedullary Internal Fixation Device, Percutaneous Approach (ICD-10-PCS; principal; 2016-12-07 15:00)
DX: S72.142A Displaced intertrochanteric fracture of left femur, initial encounter for closed fracture (principal); W01.0XXA Fall on same level from slipping, tripping and stumbling without subsequent striking against object, initial encounter; Y92.008 Other place in unspecified non-institutional (private) residence as the place of occurrence of the external cause; H91.93 Unspecified hearing loss, bilateral; M54.5 Low back pain; M25.512 Pain in left shoulder; I95.9 Hypotension, unspecified; Z87.828 Personal history of other (healed) physical injury and trauma; Z79.82 Long term (current) use of aspirin
CPT/HCPCS: 36415; 71010; 80048; 80053; 81001; 81003; 83735; 85014; 85018; 85025; 86850; 86900; 86901; 87086; 93005; 96365; 99284

== ENCOUNTER 2021-01-27 13:40 | Outpatient (CLI) | payer MEDICARE, MEDICAID ==
--- NOTE | 2021-01-29 05:19 | XRAY Report ---
PROCEDURE: Chest 2 View X-Ray INDICATIONS: R06.00 TECHNIQUE: 2 view(s) of the chest. COMPARISON: December 06, 2016. FINDINGS: SUPPORT DEVICES: None. LUNGS/PLEURA: Airspace opacity in the right mid/lower lung zone, concerning for pneumonic infiltrate. Biapical pleural thickening/scarring. MEDIASTINUM: The cardiomediastinal silhouette is within normal limits. BONES/SOFT TISSUES: Diffuse osteopenia with dextrocurvature of the thoracic spine. Flattening of the diaphragmatic contours. IMPRESSION: 1.Right mid/lower lung zone pneumonic infiltrate. Reviewed by: Kapil Wilburn MD on 01/27/2021 2:14 PM PST Approved by: Kapil Wilburn MD on 01/27/2021 2:14 PM PST Station ID: [id number]
== END 2021-01-27 13:41 | disposition home or self-care (01) ==
LOC: DI 13:40
PROVIDERS: ATTEND Student in an Organized Health Care Education/Training Program
DX: R91.8 Other nonspecific abnormal finding of lung field (principal)

== ENCOUNTER 2021-02-01 13:24 | Outpatient (CLI) | payer MEDICARE, MEDICAID | END 2021-02-01 13:25 | disposition critical access hospital (66) | LOC: EMS 13:24 | DX: R06.02 Shortness of breath (principal); R53.1 Weakness; R42 Dizziness and giddiness | CPT/HCPCS: A0425; A0429 ==

== ENCOUNTER 2021-02-01 14:00 | Inpatient (IN) | payer MEDICARE, MEDICAID ==
--- NOTE | 2021-02-01 14:18 | ED Physician Documentation ---
PD HPI DYSPNEA - Stated complaint Stated Complaint: SOA - Chief complaint Chief Complaint: Resp - History obtained from History obtained from: Patient - Additional information Additional information: 80-year-old gentleman became sick over the last week with cough and shortness of breath. He saw his physician who did an x-ray showing a right-sided pneumonia and was given what sounds like probably Zithromax since he said it was a 5-day course. Despite that he is continued to worsen with more shortness of breath and feeling like he needed oxygen. He is Covid vaccinated but has not had a booster Review of Systems Ten Systems: 10 systems reviewed and negative Constitutional: denies: Fever, Chills Eyes: reports: Reviewed and negative Ears: reports: Reviewed and negative Nose: reports: Reviewed and negative PD PAST MEDICAL HISTORY - Past Medical History Cardiovascular: None Respiratory: None Endocrine/Autoimmune: None GI: None : None HEENT: Chronic hearing loss Psych: None Musculoskeletal: None Derm: None - Past Surgical History Past Surgical History: Yes General: Hiatal hernia repair - Present Medications Home Medications: Ambulatory Orders Medication Instructions Recorded Confirmed Aspirin [Kailee Chewable Aspirin] 81 mg DAILY 03/10/15 03/10/15 Multivitamin [Multivitamins] 1 tab DAILY 03/10/15 03/10/15 polyethylene glycoL 3350 [Miralax] 17 gm PO DAILY #10 packet 12/10/16 traMADol [Ultram] 50 mg PO Q4HR PRN #30 tablet 12/10/16 - Allergies Allergies/Adverse Reactions: Allergies Allergy/AdvReac Type Severity Reaction Status Date / Time No Known Drug Allergies Allergy Verified 02/01/21 14:07 - Social History Does the pt smoke?: No Smoking Status: Never smoker Does the pt drink ETOH?: No Does the pt have substance abuse?: No - Immunizations Immunizations are current?: No Immunizations: TDAP >10years/unknown - POLST POLST Status: Full Code PD ED PE NORMAL - Vitals Vital signs reviewed: Yes - General General: No acute distress, Well developed/nourished, Other (He is slow to answer questions and seems very slightly confused, when I asked him the date he does not know but he looks for his phone for the answer, he does know that it is Tuesday though because the [employer] are playing.) - HEENT HEENT: PERRL, EOMI - Neck Neck: Supple, no meningeal sign, No bony TTP - Cardiac Cardiac: RRR, No murmur - Respiratory Respiratory: No respiratory distress, Clear bilaterally - Abdomen Abdomen: Normal bowel sounds, Soft, Non tender - Back Back: No CVA TTP, No spinal TTP - Derm Derm: Normal color, Warm and dry - Extremities Extremities: No edema, No calf tenderness / cord - Neuro Eye Opening: Spontaneous Motor: Obeys Commands Verbal: Confused GCS Score: 14 Results - Vitals Vitals: Vital Signs - 24 hr 02/01/21 02/01/21 14:07 14:26 Temperature 36.5 C Heart Rate 80 74 Respiratory 18 20 Rate Blood Pressure 138/82 H 138/82 H O2 Saturation 99 92 Oxygen O2 Source Room air - Labs Labs: Laboratory Tests 02/01/21 02/01/21 02/01/21 14:35 14:35 14:35 WBC 8.5 RBC 4.29 L Hgb 13.3 L Hct 39.8 L MCV 92.8 MCH 31.0 MCHC 33.4 RDW 14.3 Plt Count 365 MPV 9.6 Neut # (Auto) 6.9 H Lymph # (Auto) 0.6 L Kinney # (Auto) 0.6 Eos # (Auto) 0.0 Baso # (Auto) 0.0 Absolute Nucleated RBC 0.00 Nucleated RBC % 0.0 Sodium 139 Potassium 3.7 Chloride 104 Carbon Dioxide 24 Anion Gap 11.0 BUN 23 H Creatinine 1.2 Estimated GFR (MDRD) 59 L Glucose 103 H Lactic Acid 1.3 Calcium 8.5 Total Bilirubin 1.8 H AST 33 ALT 33 Alkaline Phosphatase 107 Total Protein 7.3 Albumin 2.7 L Globulin 4.6 H Albumin/Globulin Ratio 0.6 L PD MEDICAL DECISION MAKING - ED course ED course: 80-year-old gentleman with known right midlung pneumonia from chest x-ray done on January 27 having been on antibiotics but worsening with modest hypoxemia. He does not have a white count. His chest x-ray looks much worse today. At the time of admission is unclear whether this is bacterial pneumonia having failed outpatient treatment versus Covid as his Covid swab is pending, but given the normal white count likely the latter despite being vaccinated. Spoke with Dr. Chan for admission at 3:10 PM Departure - Departure Disposition: [facility] DC/Xfer Clinical Impression: Pneumonia Condition: Serious
[2021-02-01 14:47] LABS: BASOPHILS % (AUTO) 0.5 %; EOSINOPHILS % (AUTO) 0.1 %; HCT - HEMATOCRIT 39.8 % (42.0-52.0); HGB - HEMOGLOBIN 13.3 g/dL (14.0-18.0); LYMPHOCYTES # (AUTO) 0.6 10^3/uL (1.5-3.5); LYMPHOCYTES % (AUTO) 6.9 %; MEAN CORPUSCULAR HGB CONC 33.4 g/dL (32.0-36.0); MEAN CORPUSCULAR VOLUME 92.8 fL (80.0-94.0); MEAN PLATELET VOLUME 9.6 fL (7.4-11.4); MONOCYTES # (AUTO) 0.6 10^3/uL (0.0-1.0); NEUTROPHILS # (AUTO) 6.9 10^3/uL (1.5-6.6); NEUTROPHILS % (AUTO) 81.9 %; PLT - PLATELET COUNT 365 10^3/uL (130-450); RED BLOOD COUNT 4.29 10^6/uL (4.70-6.10); RED CELL DISTRIBUTION WIDTH 14.3 % (12.0-15.0); WHITE BLOOD COUNT 8.5 x10^3/uL (4.8-10.8)
--- NOTE | 2021-02-01 14:55 | XRAY Report ---
PROCEDURE: Chest 1 View X-Ray INDICATIONS: COUGH, SOB TECHNIQUE: One view of the chest was acquired. COMPARISON: Chest x-ray dated 01/27/2021 FINDINGS: Surgical changes and devices: None. Lungs and pleura: No pleural effusions or pneumothorax. There is increased, severe right and moderat e left diffuse pulmonary opacity. Mediastinum: Mediastinal contours appear normal. Heart size is normal. Bones and chest wall: No suspicious bony lesions. Overlying soft tissues appear unremarkable. IMPRESSION: Increased, right greater than left pneumonia. Follow-up PA and lateral chest x-rays or chest CT is re commended to ensure resolution, and to exclude underlying neoplasm. Reviewed by: Donny Ochoa MD on 02/01/2021 1:54 PM [facility] Approved by: Donny Ochoa MD on 02/01/2021 1:54 PM [facility] Station ID: [id number]
[2021-02-01 14:59] LABS: ALBUMIN 2.7 g/dL (3.2-5.5); ALBUMIN/GLOBULIN RATIO 0.6 (1.0-2.2); BILIRUBIN,TOTAL 1.8 mg/dL (0.2-1.0); CALCIUM 8.5 mg/dL (8.5-10.3); CREATININE 1.2 mg/dL (0.6-1.2); POTASSIUM 3.7 mmol/L (3.5-5.0); TOTAL PROTEIN 7.3 g/dL (6.7-8.2)
[2021-02-01] MEDS ORDERED: PIPERACILLIN/TAZOBACTAM 4.5 GM in SODIUM CHLORIDE 0.9% MINIBAG 100 ML IV STA (15:07)
[2021-02-01] MEDS ORDERED: ONDANSETRON 4 MG/2 ML VIAL IVP PRN (15:11)
[2021-02-01] MEDS ORDERED: ONDANSETRON ODT 4 MG TABLET TL PRN (15:11)
[2021-02-01] MEDS ORDERED: oxyCODONE 5 MG TABLET PO PRN (15:11)
--- NOTE | 2021-02-01 15:30 | HISTORY & PHYSICAL EXAMINATION ---
Chief Complaint - Chief Complaint Chief Complaint: short of breath History of Present Illness - Admitted From Admitted From:: home via EMS - History Obtained From Records Reviewed: [facility] History obtained from: Dr. Jordan and pateint Exam Limitations: none - History of Present Illness HPI Comment/Other: This pleasant 80-year-old white male was brought in by EMS because of increasing shortness of breath. He had been sick for a few days with cough, shortness of breath, fever. He was seen by his primary care provider who prescribed "5 little pills" for pneumonia. He was told that his chest x-ray had pneumonia. In the EMR there is a chest x-ray ordered by CARROLL Johnson from January 27 that shows right mid/lower lung zone pneumonia infiltrate. This is not the typical infiltrate of Covid. He says that in spite of the antibiotics he is gotten worse. He cannot breathe, he cannot do anything, and he can even eat or drink very much. It has gotten to the point that the shortness of breath left him with no energy. Even though he was hungry, he could not eat. He denies diarrhea. He did have an episode of hemoptysis this morning. Otherwise nonproductive cough. No edema, no chest pain, no palpitations. No one else in his family is sick. So EMS was called and they brought him to the emergency room. He was 99% on room air,but later dropped to 92% on RA, respirations were 18, blood pressure 138/82, heart rate 80, temperature 36.5. His respirations were even, unlabored. Chest x-ray showed increased, right greater than left, pneumonia. It was severe on the right, a moderate on the left. No pleural effusions.Covid negative. He has a normal white cell count but C-reactive protein is 19.4. I went ahead ordered a D-dimer and his D-dimer is 1050. He has not had any recent change in physical endurance until he got sick. He denies any leg edema or painful calves. Patient states that he would like to be a full code if he needs to be intubated or he has a cardiopulmonary arrest. History - Past Medical History Cardiovascular: reports: None Respiratory: reports: None Neuro: reports: Head injury Endocrine/Autoimmune: reports: None GI: reports: GERD, Hiatal hernia : reports: None HEENT: reports: Chronic vision loss, Chronic hearing loss Psych: reports: None Musculoskeletal: reports: None Derm: reports: None MRSA Hx?: No - Past Surgical History General: reports: Hiatal hernia repair Ortho: reports: Other (Fall with right hip fracture resulting in repair November 2016) - Family & Social History Family History Comment/Other: Mom at age 87 and of "old age" without diabetes, hypertension, CAD. Dad at age 81 of complications of prostate cancer and also had diabetes. 2 brothers are completely healthy. 7 sisters are completely healthy except 1 who of "blood cancer". He does not think that his sisters have diabetes, cancer, heart attack, stroke. No children. Living arrangement: At home Living Situation: With family Social History Notes: He is a [employer]. That is what he did for most of his life. He lives with his sister and her daughter. He has lived with his sister all his life, and his niece came to live with him a year ago. He tried smoking in the 1960s but it did not take. But his niece smokes in the house. He drinks an occasional glass of beer or wine maybe once a year. [place] His family lives near [facility]. - Substance History Use: Uses substance without health or social issues: NONE Abuse: Recurrent use of substance despite neg consequences: NONE Dependence: Experiences withdrawal or developed tolerances: NONE - POLST Patient has POLST: No POLST Status: Full Code Meds/Allgy - Home Medications Home Medications: Ambulatory Orders Medication Instructions Recorded Confirmed Aspirin [Kailee Chewable Aspirin] 81 mg DAILY 03/10/15 03/10/15 Multivitamin [Multivitamins] 1 tab DAILY 03/10/15 03/10/15 polyethylene glycoL 3350 [Miralax] 17 gm PO DAILY #10 packet 12/10/16 traMADol [Ultram] 50 mg PO Q4HR PRN #30 tablet 12/10/16 - Allergies Allergies/Adverse Reactions: Allergies Allergy/AdvReac Type Severity Reaction Status Date / Time No Known Drug Allergies Allergy Verified 02/01/21 14:07 Review of Systems - Constitutional Constitutional: reports: Fatigue, Malaise, Poor appetite - Eyes Eyes: reports: Vision loss, Corrective lenses - Ears, Nose & Throat Ears, Nose & Throat: reports: Hearing loss. denies: Ear pain, Hearing aids, Tinnitus, Nasal pain, Nasal discharge, Nasal obstruction, Nasal congestion, Postnasal drainage, Sore throat, Hoarseness - Cardiovascular Cariovascular: reports: Exertional dyspnea, Decr. exercise tolerance. denies: Irregular heart rate, Palpitations, Chest pain, Edema - Respiratory Respiratory: reports: Cough, Hemoptysis, SOB at rest, SOB with exertion. denies: Wheezing, Orthopnea - Gastrointestinal Gastrointestinal: denies: Abdominal pain, Abdominal distention, Constipation, Diarrhea, Change in bowel habits - Genitourinary Genitourinary: denies: Dysuria, Frequency, Urgency, Hematuria, Incontinence - Musculoskeletal Musculoskeletal: reports: Stiffness. denies: Muscle pain, Back pain, Muscle aches, Joint pain - Integumentary Integumentary: denies: Rash, Pruritis, Lesions, Dryness - Neurological Neurological: reports: General weakness, Memory problems. denies: Focal weakness, Headache, Dizziness, Pre-existing deficit, Abnormal gait, Seizures - Psychiatric Psychiatric: denies: Depression, Anxiety, Suicidal - Endocrine Endocrine: denies: Polyuria, Polydypsia, Polyphagia - Hematologic/Lymphatic Hematologic/Lymphatic: denies: Anemia, Bruising, Petechiae Prior Level of Functionality: He states that prior to getting sick, he did not have any limitations. He still drove car, did occasional light farm work and housework, but his sister pays the bills and his niece helps with grocery shopping because he is getting forgetful. He does not use a cane or a walker. He denies having any problems with incontinence. He has fallen a couple of times in the last decade but not because of balance. He usually tripped over something Exam - Vital Signs Reviewed Vital Signs: Yes Vital Signs: Vital Signs x48h Temp Pulse Resp BP Pulse Ox 02/01/21 14:26 74 20 138/82 H 92 02/01/21 14:07 36.5 C 80 18 138/82 H 99 - Physical Exam General Appearance: positive: Alert (thin elderly male, lucid conversation but ?cognitive deficit), Other (He is gobbling down dinner, with great enjoyment/gusto and smacking of lips. He states that he had no appetite because of shortness of breath and now that the oxygen has helped him with the shortness of breath he is suddenly very hungry) Eyes Bilateral: positive: PERRL, EOMI ENT: positive: No signs of dehydration Neck: positive: No JVD. negative: Stiff neck Respiratory: positive: No respiratory distress, Rhonchi (RML). negative: Wheezes, Rales Cardiovascular: positive: Regular rate & rhythm, No gallop, Systolic murmur Peripheral Pulses: positive: 1+ Abdomen: positive: Non-tender, No organomegaly, Nml bowel sounds, No distention Skin: positive: Warm, Dry Extremities: positive: Full ROM, No pedal edema Neurologic/Psychiatric: positive: Oriented x3, CN's nml (2-12), Motor nml Conclusion/Plan - Problem List (1) Community acquired pneumonia Conclusion/Plan: It is in the right middle lung, and he does not give a history of aspiration or swallowing problems. His main objective documentation with his pneumonia is an abnormal chest x-ray, and hypoxemia. He also has an elevated D-dimer. He is Covid negative. Plan: In patient admission He is already completed azithromycin in the outpatient setting. In spite of this he has not responded. To cover most organisms as well as possible aspiration we will use Zosyn. Check sputum cultures and blood cultures. Antibiotics already been given Qualifiers: Laterality: right Lung location: middle lobe of lung Qualified Code(s): J18.9 - Pneumonia, unspecified organism (2) Elevated d-dimer Conclusion/Plan: As an inflammatory reagent I would expect this that elevated with pneumonia. But it is significantly elevated. Will do CT pulmonary angiogram. Give empiric dose of Lovenox [address] comes back. He does not have any reason for PE. His legs are not with edema. He has not had any recent decreased endurance as of the last 5 days. No recent travel or prolonged sedentary status. 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 He is a pascual gentleman, alert, cooperative, lucid speech patterns, but cognition appears slow, very simple. Very uncomplicated. He cannot quite remember what his traumatic brain injury was about. Will verify with family. - Lab Results Lab results reviewed: Yes Fish Bones: 02/01/21 14:35 02/01/21 14:35 - Diagnostic Imaging Results Diagnostic Imaging Results: positive: Final report reviewed Core Measures - Anticipated LOS I expect patient to be DC'd or transferred within 96 hours.: Yes - DVT/VTE - Prophylaxis VTE/DVT Device ordered at admit?: Yes
[2021-02-01 15:54] LABS: CRP - C-REACTIVE PROTEIN 19.4 mg/dL (0-1.0)
[2021-02-01] MEDS: SODIUM CHLORIDE FLUSH 0.9% 10 ML SYRINGE IVP SCH ×2 (17:05→23:38)
[2021-02-01] MEDS: LACTATED RINGERS 1,000 ML IV SCH (17:05)
[2021-02-01] MEDS ORDERED: IOPAMIDOL-300 100 ML VIAL ONE (18:59)
[2021-02-01 19:04] LABS: BILIRUBIN,URINE NEGATIVE (NEGATIVE); GLUCOSE, URINE (UA) NEGATIVE (NEGATIVE); KETONES,URINE (UA) TRACE mg/dL (NEGATIVE); LEUKOCYTE ESTERASE, URINE NEGATIVE (NEGATIVE); NITRITE,URINE NEGATIVE (NEGATIVE); OCCULT BLOOD,URINE TRACE-INTA (NEGATIVE); PROTEIN,URINE 30 mg/dL (NEGATIVE); UROBILINOGEN,URINE 1 (NORMAL) E.U./dL (NORMAL)
[2021-02-01 19:07] LABS: CLARITY,URINE CLEAR (CLEAR)
[2021-02-01 19:15] LABS: BACTERIA,URINE Rare /HPF (None Seen); SQUAMOUS EPITHELIAL CELL,UR FEW Squamous (<= Few)
[2021-02-01 20:18] LABS: B. PARAPERTUSSIS- RESP PCR PAN NOT DETECTED; B. PERTUSSIS- RESP PCR PANEL NOT DETECTED; C. PNEUMONIAE- RESP PCR PANEL NOT DETECTED; CORONAVIRUS 229E-RESP PCR NOT DETECTED; CORONAVIRUS HKU1-RESP PCR NOT DETECTED; CORONAVIRUS NL63-RESP PCR NOT DETECTED; CORONAVIRUS OC43-RESP PCR NOT DETECTED; HUMAN METAPNEUMOVIRUS NOT DETECTED; INFLUENZA A- RESP PCR PANEL NOT DETECTED; INFLUENZA B - RESP PCR PANEL NOT DETECTED; M. PNEUMONIAE- RESP PCR PANEL NOT DETECTED; PARAINFLUENZA VIRUS 1 NOT DETECTED; PARAINFLUENZA VIRUS 2 NOT DETECTED; PARAINFLUENZA VIRUS 3 NOT DETECTED; PARAINFLUENZA VIRUS 4 NOT DETECTED; RHINOVIRUS/ENTEROVIRUS NOT DETECTED; RSV- RESP PCR PANEL NOT DETECTED; SARS-CoV-2 -RESP PCR PANEL DETECTED
[2021-02-01] MEDS: ACETAMINOPHEN 325 MG TABLET PO PRN (21:50)
[2021-02-01] MEDS: DEXAMETHASONE 4 MG/ML VIAL IVP SCH (21:50)
[2021-02-01] MEDS: SODIUM CHLORIDE FLUSH 0.9% 10 ML SYRINGE IVP PRN (21:54)
[2021-02-01] MEDS: ENOXAPARIN 80 MG/0.8 ML SYRINGE SUBQ SCH (21:54)
[2021-02-01] MEDS: PIPERACILLIN/TAZOBACTAM 4.5 GM in SODIUM CHLORIDE 0.9% MINIBAG 100 ML IV SCH (22:55)
[2021-02-01] MEDS ORDERED: IOPAMIDOL-300 100 ML VIAL IVP ONE (23:53)
--- NOTE | 2021-02-02 00:41 | CT Report ---
PROCEDURE: ANGIO CHEST W/WO INDICATIONS: Elevated d dimer, hypoxia CONTRAST: IV CONTRAST: Isovue 300 ml: 100 PO CONTRAST: *NO PO CONTRAST TECHNIQUE: After the administration of intravenous contrast, 2 mm axial images were acquired from the pulmonary apices to the posterior costophrenic angles during the arterial phase. In addition, 1 mm lung kernel and 5 mm soft tissue kernel reconstructions were performed. 3-dimensional coronal oblique maximum int ensity projection (MIP) reformats, 8 mm axial MIP, and 5 mm coronal and sagittal MPR reformats were t hen performed through the thorax. For radiation dose reduction, the following was used: automated exp osure control, adjustment of mA and/or kV according to patient size. COMPARISON: CXR earlier today, 01/27/2021. FINDINGS: Image quality: Fair. Pulmonary arteries: Pulmonary arteries are normal in size, and demonstrate no intraluminal filling d efects to suggest central pulmonary embolism. Lungs and pleura: Bilateral patchy airspace opacity. This is severe in the right lung and mild in the left lung. No pleural effusions or pneumothorax. Central and peripheral airways are patent. Mediastinum: Heart size is within normal limits, without pericardial effusion. Aortic valvular calci fications. Coronary artery calcifications. No mediastinal or hilar adenopathy. Thoracic aorta is no rmal in caliber and enhancement. Esophagus is normal in caliber, without hiatal hernia. Bones and chest wall: No suspicious bony lesions. Scoliosis. Prior left-sided rib fractures. Ribs an d thoracic spine appear intact throughout. No axillary or supraclavicular adenopathy. The thyroid i s normal in size and there are no incidental findings. Abdomen: Pneumobilia. Cystectomy. No free fluid seen. IMPRESSION: Image quality is fair. 1. No central pulmonary embolism. 2. Severe right lung and mild left lung patchy airspace opacity. Findings suspicious for Covid-19 pne umonia. 3. Pneumobilia. Reviewed by: Jericho Harry MD on 02/02/2021 12:40 AM PST Approved by: Jericho Harry MD on 02/02/2021 12:40 AM PST Station ID: [id number]
[2021-02-02] MEDS: LACTATED RINGERS 1,000 ML IV SCH (02:41)
[2021-02-02 05:57] LABS: BASOPHILS % (AUTO) 0.3 %; HCT - HEMATOCRIT 37.4 % (42.0-52.0); HGB - HEMOGLOBIN 12.4 g/dL (14.0-18.0); LYMPHOCYTES # (AUTO) 0.3 10^3/uL (1.5-3.5); LYMPHOCYTES % (AUTO) 4.6 %; MEAN CORPUSCULAR HEMOGLOBIN 30.4 pg (27.0-31.0); MEAN CORPUSCULAR HGB CONC 33.2 g/dL (32.0-36.0); MEAN CORPUSCULAR VOLUME 91.7 fL (80.0-94.0); MEAN PLATELET VOLUME 10.2 fL (7.4-11.4); MONOCYTES # (AUTO) 0.2 10^3/uL (0.0-1.0); MONOCYTES % (AUTO) 2.5 %; NEUTROPHILS # (AUTO) 6.5 10^3/uL (1.5-6.6); NEUTROPHILS % (AUTO) 89.1 %; PLT - PLATELET COUNT 299 10^3/uL (130-450); RED BLOOD COUNT 4.08 10^6/uL (4.70-6.10); RED CELL DISTRIBUTION WIDTH 14.1 % (12.0-15.0); WHITE BLOOD COUNT 7.2 x10^3/uL (4.8-10.8)
[2021-02-02] MEDS: PIPERACILLIN/TAZOBACTAM 4.5 GM in SODIUM CHLORIDE 0.9% MINIBAG 100 ML IV SCH ×3 (06:42→21:59)
[2021-02-02] MEDS: DEXAMETHASONE 4 MG/ML VIAL IVP SCH (08:14)
[2021-02-02] MEDS: ENOXAPARIN 80 MG/0.8 ML SYRINGE SUBQ SCH ×2 (08:15→20:03)
[2021-02-02] MEDS: TAMSULOSIN 0.4 MG CAPSULE PO SCH (08:16)
[2021-02-02] MEDS: SODIUM CHLORIDE FLUSH 0.9% 10 ML SYRINGE IVP SCH ×2 (08:16→16:20)
--- NOTE | 2021-02-02 08:52 | PROVIDER PROGRESS NOTE ---
Assessment/Plan - Problem List (1) Acute respiratory failure with hypoxia Assessment/Plan: Likely secondary to COVID-19 and community-acquired pneumonia. Patient is currently on 3 L of oxygen via nasal cannula with oxygen saturation around 93%. On Zosyn 4.5 g every 8 hours. Dexamethasone 6 mg IV daily 03/01. (2) COVID-19 Assessment/Plan: Patient is currently on 3 L of oxygen via nasal cannula with oxygen saturation around 93%. On Zosyn 4.5 g every 8 hours. Dexamethasone 6 mg IV daily 03/01. D-dimer was elevated at greater than 1050. CT angiogram of the thorax was negative for PE. On Lovenox 70 mg subcu twice daily (3) Community acquired pneumonia Qualifiers: Laterality: right Lung location: middle lobe of lung Qualified Code(s): J18.9 - Pneumonia, unspecified organism Assessment/Plan: Patient is currently on 3 L of oxygen via nasal cannula with oxygen saturation around 93%. On Zosyn 4.5 g every 8 hours. Dexamethasone 6 mg IV daily 03/01. - Current Meds Current Meds: Current Medications Generic Name Dose Route Start Last Admin Trade Name Freq PRN Reason Stop Dose Admin Acetaminophen 650 mg 02/01/21 15:11 02/01/21 21:50 Acetaminophen 325 Mg Tablet PO 650 mg Q4HR PRN Administration Pain 1 to 4 Dexamethasone 6 mg 02/01/21 20:23 02/02/21 08:14 Dexamethasone 4 Mg/Ml Vial IVP 6 mg DAILY KARRIE Administration Enoxaparin Sodium 80 mg 02/01/21 21:00 02/02/21 08:15 Enoxaparin 80 Mg/0.8 Ml Syringe SUBQ 80 mg BID KARRIE Administration Lactated Ringer's 1,000 mls @ 100 mls/hr 02/01/21 16:00 02/02/21 08:10 Lr IV 02/02/21 11:59 0 mls/hr .Q10H KARRIE Infusion Piperacillin Sod/Tazobactam 100 mls @ 25 mls/hr 02/01/21 23:00 02/02/21 06:42 Sod 4.5 gm/ Sodium Chloride IV 25 mls/hr Q8H KARRIE Administration Sodium Chloride 10 ml 02/01/21 15:11 02/01/21 21:54 Sodium Chloride Flush 0.9% 10 Ml Syringe IVP 10 ml PRN PRN Administration NEEDED PER PROVIDER ORDERS Sodium Chloride 10 ml 02/01/21 17:00 02/02/21 08:16 Sodium Chloride Flush 0.9% 10 Ml Syringe IVP 10 ml 0100,0900,1700 KARRIE Administration Tamsulosin HCl 0.4 mg 02/02/21 09:00 02/02/21 08:16 Tamsulosin 0.4 Mg Capsule PO 0.4 mg DAILY KARRIE Administration - Lab Result Fish Bone Diagrams: 02/02/21 04:57 02/01/21 14:35 Subjective - Subjective Patient Reports: Other (Patient was resting comfortably in bed at time of exam. He reports breathing better today than at time of admission yesterday. He denies any chest pain, abdominal pain, nausea, vomiting, fever or chills. He required 3 L of oxygen via nasal cannula today.) Objective Vital Signs: Vital Signs - 24 hr 02/01/21 02/01/21 02/01/21 14:07 14:26 16:00 Temperature 36.5 C 37.9 C Heart Rate 80 74 Heart Rate [ 69 Brachial] Respiratory 18 20 20 Rate Blood Pressure 138/82 H 138/82 H Blood Pressure 160/80 H [Right Brachial artery] O2 Saturation 99 92 91 L 02/01/21 02/01/21 02/01/21 16:05 17:23 20:37 Temperature 37.9 C 37.5 C Heart Rate 66 Heart Rate [ 71 Brachial] Respiratory 18 18 Rate Blood Pressure Blood Pressure 126/74 [Right Brachial artery] O2 Saturation 94 95 94 02/01/21 02/02/21 23:41 08:11 Temperature 37.0 C 36.4 C L Heart Rate Heart Rate [ 66 78 Brachial] Respiratory 20 20 Rate Blood Pressure Blood Pressure 146/71 H 147/77 H [Right Brachial artery] O2 Saturation 92 91 L Oxygen O2 Source Room air I&O (Last 24 Hrs): Intake and Output Totals x24h 01/31/21 02/01/21 02/02/21 23:59 23:59 23:59 Intake Total 223.474 0040.416 Output Total 525 875 Balance 104.917 820.416 General: Alert, Oriented x3, No acute distress HEENT: PERRLA, EOMI Neck: Supple, No JVD Neuro: Alert, Non Focal, Oriented Times 3 Cardiovascular: Regular rate, No murmurs Respiratory: Chest non-tender, No respiratory distress, Breath sounds nml Abdomen: Normal bowel sounds, Soft, No tenderness, No masses Extremities: No clubbing, No cyanosis, No edema, No tenderness/swelling Skin: No rashes, No breakdown, No significant lesion - Results Results: Laboratory Results WBC 7.2 x10^3/uL (4.8-10.8) 02/02/21 04:57 RBC 4.08 10^6/uL (4.70-6.10) L 02/02/21 04:57 Hgb 12.4 g/dL (14.0-18.0) L 02/02/21 04:57 Hct 37.4 % (42.0-52.0) L 02/02/21 04:57 MCV 91.7 fL (80.0-94.0) 02/02/21 04:57 MCH 30.4 pg (27.0-31.0) 02/02/21 04:57 MCHC 33.2 g/dL (32.0-36.0) 02/02/21 04:57 RDW 14.1 % (12.0-15.0) 02/02/21 04:57 Plt Count 299 10^3/uL (130-450) 02/02/21 04:57 MPV 10.2 fL (7.4-11.4) 02/02/21 04:57 Neut # (Auto) 6.5 10^3/uL (1.5-6.6) 02/02/21 04:57 Lymph # (Auto) 0.3 10^3/uL (1.5-3.5) L 02/02/21 04:57 [place] # (Auto) 0.2 10^3/uL (0.0-1.0) 02/02/21 04:57 Eos # (Auto) 0.0 10^3/uL (0.0-0.7) 02/02/21 04:57 Baso # (Auto) 0.0 10^3/uL (0.0-0.1) 02/02/21 04:57 Absolute Nucleated RBC 0.00 x10^3/uL 02/02/21 04:57 Nucleated RBC % 0.0 /100WBC 02/02/21 04:57 D-Dimer > 1050.0 ng/mL (200.0-255.0) H 02/01/21 14:35 Sodium 139 mmol/L (135-145) 02/01/21 14:35 Potassium 3.7 mmol/L (3.5-5.0) 02/01/21 14:35 Chloride 104 mmol/L (101-111) 02/01/21 14:35 Carbon Dioxide 24 mmol/L (21-32) 02/01/21 14:35 Anion Gap 11.0 (6-13) 02/01/21 14:35 BUN 23 mg/dL (6-20) H 02/01/21 14:35 Creatinine 1.2 mg/dL (0.6-1.2) 02/01/21 14:35 Estimated GFR (MDRD) 59 (>89) L 02/01/21 14:35 Glucose 103 mg/dL (70-100) H 02/01/21 14:35 Lactic Acid 1.3 mmol/L (0.5-2.2) 02/01/21 14:35 Calcium 8.5 mg/dL (8.5-10.3) 02/01/21 14:35 Total Bilirubin 1.8 mg/dL (0.2-1.0) H 02/01/21 14:35 AST 33 IU/L (10-42) 02/01/21 14:35 ALT 33 IU/L (10-60) 02/01/21 14:35 Alkaline Phosphatase 107 IU/L (42-121) 02/01/21 14:35 Total Creatine Kinase 51 IU/L (22-269) 02/01/21 14:35 C-Reactive Protein 17.9 mg/dL (0-1.0) H 02/02/21 04:57 Total Protein 7.3 g/dL (6.7-8.2) 02/01/21 14:35 Albumin 2.7 g/dL (3.2-5.5) L 02/01/21 14:35 Globulin 4.6 g/dL (2.1-4.2) H 02/01/21 14:35 Albumin/Globulin Ratio 0.6 (1.0-2.2) L 02/01/21 14:35 Urine Color YELLOW 02/01/21 18:40 Urine Clarity CLEAR (CLEAR) 02/01/21 18:40 Urine pH 6.0 PH (5.0-7.5) 02/01/21 18:40 Ur Specific [place] 1.025 (1.002-1.030) 02/01/21 18:40 Urine Protein 30 mg/dL (NEGATIVE) H 02/01/21 18:40 Urine Glucose (UA) NEGATIVE mg/dL (NEGATIVE) 02/01/21 18:40 Urine Ketones TRACE mg/dL (NEGATIVE) 02/01/21 18:40 Urine Occult Blood TRACE-INTA (NEGATIVE) 02/01/21 18:40 Urine Nitrite NEGATIVE (NEGATIVE) 02/01/21 18:40 Urine Bilirubin NEGATIVE (NEGATIVE) 02/01/21 18:40 Urine Urobilinogen 1 (NORMAL) E.U./dL (NORMAL) 02/01/21 18:40 Ur Leukocyte Esterase NEGATIVE (NEGATIVE) 02/01/21 18:40 Urine RBC 6-10 /HPF (0-5) H 02/01/21 18:40 Urine WBC 4-5 /HPF (0-3) 02/01/21 18:40 Ur Squamous Epith Cells FEW Squamous (<= Few) 02/01/21 18:40 Urine Bacteria Rare /HPF (None Seen) 02/01/21 18:40 Urine Culture Comments NOT INDICATED 02/01/21 18:40 Nasal Adenovirus (PCR) NOT DETECTED 02/01/21 19:20 Nasal B. parapertussis DNA (PCR) NOT DETECTED 02/01/21 19:20 Nasal Coronavir 229E PCR NOT DETECTED 02/01/21 19:20 Nasal Coronavir HKU1 PCR NOT DETECTED 02/01/21 19:20 Nasal Coronavir NL63 PCR NOT DETECTED 02/01/21 19:20 Nasal Coronavir OC43 PCR NOT DETECTED 02/01/21 19:20 Nasal Enterovir/Rhinovir PCR NOT DETECTED 02/01/21 19:20 Nasal Influenza B PCR NOT DETECTED 02/01/21 19:20 Nasal Influenza A PCR NOT DETECTED 02/01/21 19:20 Nasal Parainfluen 1 PCR NOT DETECTED 02/01/21 19:20 Nasal Parainfluen 2 PCR NOT DETECTED 02/01/21 19:20 Nasal Parainfluen 3 PCR NOT DETECTED 02/01/21 19:20 Nasal Parainfluen 4 PCR NOT DETECTED 02/01/21 19:20 Nasal RSV (PCR) NOT DETECTED 02/01/21 19:20 Nasal B.pertussis DNA PCR NOT DETECTED 02/01/21 19:20 Nasal C.pneumoniae (PCR) NOT DETECTED 02/01/21 19:20 [place] Human Metapneumo PCR NOT DETECTED 02/01/21 19:20 Nasal M.pneumoniae (PCR) NOT DETECTED 02/01/21 19:20 Nasal SARS-CoV-2 (PCR) DETECTED A 02/01/21 19:20 - Procedures Procedures: Procedures INSPECTION OF LOWER INTESTINAL TRACT, ENDO (02/27/15) REPOSITION LEFT UPPER FEMUR WITH INTRAMED FIX, PERC APPROACH (12/06/16) ABX Reporting Has patient been on IV antibiotics over the past 48 hours?: Yes
[2021-02-02] MEDS ORDERED: ENOXAPARIN 40 MG/0.4 ML SYRINGE SUBQ SCH (09:00)
--- NOTE | 2021-02-02 11:23 | PHARMACY PROGRESS NOTE ---
- Best Possible Medication History Admit Date and Time: 02/01/21 1511 Processed by: Pharmacy Medication History completed: Yes Patient Interview: Completed Secondary Source(s): Physician records As the person ultimately responsible for medication therapy, providers are able to order a medication from an existing home medication list in [facility] via the "Reconcile Routine" prior to Confirmation of that medication by administrative support coordinator. Such practice is discouraged except when the physician, in their clinical judgment, deems that a medical need exists for a medication without regard to previous use.
[2021-02-02] MEDS: SODIUM CHLORIDE FLUSH 0.9% 10 ML SYRINGE IVP PRN (14:29)
[2021-02-03] MEDS: SODIUM CHLORIDE FLUSH 0.9% 10 ML SYRINGE IVP SCH ×3 (02:24→17:36)
[2021-02-03 05:48] LABS: BASOPHILS # (AUTO) 0.1 10^3/uL (0.0-0.1); BASOPHILS % (AUTO) 0.5 %; HCT - HEMATOCRIT 35.7 % (42.0-52.0); HGB - HEMOGLOBIN 11.7 g/dL (14.0-18.0); LYMPHOCYTES # (AUTO) 0.9 10^3/uL (1.5-3.5); LYMPHOCYTES % (AUTO) 7.8 %; MEAN CORPUSCULAR HEMOGLOBIN 30.2 pg (27.0-31.0); MEAN CORPUSCULAR HGB CONC 32.8 g/dL (32.0-36.0); MEAN CORPUSCULAR VOLUME 92.2 fL (80.0-94.0); MONOCYTES # (AUTO) 0.6 10^3/uL (0.0-1.0); MONOCYTES % (AUTO) 5.3 %; NEUTROPHILS # (AUTO) 9.2 10^3/uL (1.5-6.6); NEUTROPHILS % (AUTO) 83.2 %; PLT - PLATELET COUNT 376 10^3/uL (130-450); RED BLOOD COUNT 3.87 10^6/uL (4.70-6.10); RED CELL DISTRIBUTION WIDTH 14.5 % (12.0-15.0); WHITE BLOOD COUNT 11.1 x10^3/uL (4.8-10.8)
[2021-02-03] MEDS: PIPERACILLIN/TAZOBACTAM 4.5 GM in SODIUM CHLORIDE 0.9% MINIBAG 100 ML IV SCH ×3 (06:57→22:08)
[2021-02-03] MEDS: ENOXAPARIN 80 MG/0.8 ML SYRINGE SUBQ SCH ×2 (08:07→22:05)
[2021-02-03] MEDS: DEXAMETHASONE 4 MG/ML VIAL IVP SCH (08:08)
[2021-02-03] MEDS: TAMSULOSIN 0.4 MG CAPSULE PO SCH (08:08)
--- NOTE | 2021-02-03 08:29 | PROVIDER PROGRESS NOTE ---
Assessment/Plan - Problem List (1) Acute respiratory failure with hypoxia Assessment/Plan: Likely secondary to COVID-19 and community-acquired pneumonia. Patient is currently on 3 L of oxygen via nasal cannula with oxygen saturation around 93%. On Zosyn 4.5 g every 8 hours. Dexamethasone 6 mg IV daily 04/01. Remdesivir 1/ If there is no significant increase in patient oxygen requirement tomorrow 02/04/2021 will consider potential discharge home on supplemental oxygen and oral dexamethasone. (2) COVID-19 Assessment/Plan: Patient is currently on 3 L of oxygen via nasal cannula with oxygen saturation around 93%. On Zosyn 4.5 g every 8 hours. WBC today was 11.1 Dexamethasone 6 mg IV daily 04/01. Remdesivir 1 If there is no significant increase in patient oxygen requirement tomorrow 02/04/2021 will consider potential discharge home on supplemental oxygen and oral dexamethasone. (3) Community acquired pneumonia Qualifiers: Laterality: right Lung location: middle lobe of lung Qualified Code(s): J18.9 - Pneumonia, unspecified organism Assessment/Plan: Patient is currently on 3 L of oxygen via nasal cannula with oxygen saturation around 93%. On Zosyn 4.5 g every 8 hours. WBC today was 11.1 - Current Meds Current Meds: Current Medications Generic Name Dose Route Start Last Admin Trade Name Freq PRN Reason Stop Dose Admin Acetaminophen 650 mg 02/01/21 15:11 02/01/21 21:50 Acetaminophen 325 Mg Tablet PO 650 mg Q4HR PRN Administration Pain 1 to 4 Dexamethasone 6 mg 02/01/21 20:23 02/03/21 08:08 Dexamethasone 4 Mg/Ml Vial IVP 6 mg DAILY KARRIE Administration Enoxaparin Sodium 70 mg 02/02/21 21:00 02/03/21 08:07 Enoxaparin 80 Mg/0.8 Ml Syringe SUBQ 70 mg BID KARRIE Administration Piperacillin Sod/Tazobactam 100 mls @ 25 mls/hr 02/01/21 23:00 02/03/21 06:57 Sod 4.5 gm/ Sodium Chloride IV 25 mls/hr Q8H KARRIE Administration Pneumococcal 13-Valent Conj Vacc 0.5 ml 02/03/21 09:00 02/03/21 08:07 Pneumococcal 13-Valent Conj 0.5 Ml Syringe IM 02/03/21 09:01 Not Given .ONCE ONE Sodium Chloride 10 ml 02/01/21 15:11 02/02/21 14:29 Sodium Chloride Flush 0.9% 10 Ml Syringe IVP 10 ml PRN PRN Administration NEEDED PER PROVIDER ORDERS Sodium Chloride 10 ml 02/01/21 17:00 02/03/21 08:08 Sodium Chloride Flush 0.9% 10 Ml Syringe IVP 10 ml 0100,0900,1700 KARRIE Administration Tamsulosin HCl 0.4 mg 02/02/21 09:00 02/03/21 08:08 Tamsulosin 0.4 Mg Capsule PO 0.4 mg DAILY KARRIE Administration - Lab Result Fish Bone Diagrams: 02/03/21 05:15 02/03/21 05:15 - Additional Planning My Orders: My Active Orders 02/02/21 21:00 Enoxaparin [Lovenox] 70 mg SUBQ BID 02/03/21 08:26 BMP - BASIC METABOLIC PANEL [CHEM] Routine 02/04/21 05:00 BMP - BASIC METABOLIC PANEL [CHEM] DAILYLAB 02/05/21 05:00 BMP - BASIC METABOLIC PANEL [CHEM] DAILYLAB 02/06/21 05:00 BMP - BASIC METABOLIC PANEL [CHEM] DAILYLAB 02/07/21 05:00 BMP - BASIC METABOLIC PANEL [CHEM] DAILYLAB 02/08/21 05:00 BMP - BASIC METABOLIC PANEL [CHEM] DAILYLAB Subjective - Subjective Patient Reports: Other (Patient was seated in bedside chair at time of visit eating lunch. He denied any significant difficulty in breathing. Denied chest pain, abdominal pain, nausea, vomiting, fever or chills.) Objective Vital Signs: Vital Signs - 24 hr 02/02/21 02/02/21 02/03/21 10:56 15:43 01:15 Temperature 36.3 C L 36.3 C L Heart Rate [ 80 75 61 Brachial] Respiratory 20 22 20 Rate Blood Pressure 112/72 133/77 H 137/76 H [Right Brachial artery] O2 Saturation 93 93 93 02/03/21 08:02 Temperature 36.6 C Heart Rate [ 64 Brachial] Respiratory 19 Rate Blood Pressure 142/74 H [Right Brachial artery] O2 Saturation 92 Oxygen O2 Source Nasal cannula I&O (Last 24 Hrs): Intake and Output Totals x24h 02/01/21 02/02/21 02/03/21 23:59 23:59 23:59 Intake Total 270.340 6331.083 300 Output Total 525 1175 575 Balance 175.925 2226.083 -275 General: Alert, Oriented x3, No acute distress HEENT: PERRLA, EOMI Neck: Supple, No JVD Neuro: Alert, Non Focal, Oriented Times 3 Cardiovascular: Regular rate, No murmurs Respiratory: Chest non-tender, No respiratory distress, Breath sounds nml Abdomen: Normal bowel sounds, Soft, No tenderness, No masses Extremities: No clubbing, No cyanosis, No edema Skin: No rashes, No breakdown, No significant lesion - Results Results: Laboratory Results WBC 11.1 x10^3/uL (4.8-10.8) H 02/03/21 05:15 RBC 3.87 10^6/uL (4.70-6.10) L 02/03/21 05:15 Hgb 11.7 g/dL (14.0-18.0) L 02/03/21 05:15 Hct 35.7 % (42.0-52.0) L 02/03/21 05:15 MCV 92.2 fL (80.0-94.0) 02/03/21 05:15 MCH 30.2 pg (27.0-31.0) 02/03/21 05:15 MCHC 32.8 g/dL (32.0-36.0) 02/03/21 05:15 RDW 14.5 % (12.0-15.0) 02/03/21 05:15 Plt Count 376 10^3/uL (130-450) 02/03/21 05:15 MPV 10.0 fL (7.4-11.4) 02/03/21 05:15 Neut # (Auto) 9.2 10^3/uL (1.5-6.6) H 02/03/21 05:15 Lymph # (Auto) 0.9 10^3/uL (1.5-3.5) L 02/03/21 05:15 [place] # (Auto) 0.6 10^3/uL (0.0-1.0) 02/03/21 05:15 Eos # (Auto) 0.0 10^3/uL (0.0-0.7) 02/03/21 05:15 Baso # (Auto) 0.1 10^3/uL (0.0-0.1) 02/03/21 05:15 Absolute Nucleated RBC 0.00 x10^3/uL 02/03/21 05:15 Nucleated RBC % 0.0 /100WBC 02/03/21 05:15 D-Dimer > 1050.0 ng/mL (200.0-255.0) H 02/01/21 14:35 Sodium 139 mmol/L (135-145) 02/01/21 14:35 Potassium 3.7 mmol/L (3.5-5.0) 02/01/21 14:35 Chloride 104 mmol/L (101-111) 02/01/21 14:35 Carbon Dioxide 24 mmol/L (21-32) 02/01/21 14:35 Anion Gap 11.0 (6-13) 02/01/21 14:35 BUN 23 mg/dL (6-20) H 02/01/21 14:35 Creatinine 1.2 mg/dL (0.6-1.2) 02/01/21 14:35 Estimated GFR (MDRD) 59 (>89) L 02/01/21 14:35 Glucose 103 mg/dL (70-100) H 02/01/21 14:35 Lactic Acid 1.3 mmol/L (0.5-2.2) 02/01/21 14:35 Calcium 8.5 mg/dL (8.5-10.3) 02/01/21 14:35 Total Bilirubin 1.8 mg/dL (0.2-1.0) H 02/01/21 14:35 AST 33 IU/L (10-42) 02/01/21 14:35 ALT 33 IU/L (10-60) 02/01/21 14:35 Alkaline Phosphatase 107 IU/L (42-121) 02/01/21 14:35 Total Creatine Kinase 51 IU/L (22-269) 02/01/21 14:35 C-Reactive Protein 10.4 mg/dL (0-1.0) H 02/03/21 05:15 Total Protein 7.3 g/dL (6.7-8.2) 02/01/21 14:35 Albumin 2.7 g/dL (3.2-5.5) L 02/01/21 14:35 Globulin 4.6 g/dL (2.1-4.2) H 02/01/21 14:35 Albumin/Globulin Ratio 0.6 (1.0-2.2) L 02/01/21 14:35 Urine Color YELLOW 02/01/21 18:40 Urine Clarity CLEAR (CLEAR) 02/01/21 18:40 Urine pH 6.0 PH (5.0-7.5) 02/01/21 18:40 Ur Specific [place] 1.025 (1.002-1.030) 02/01/21 18:40 Urine Protein 30 mg/dL (NEGATIVE) H 02/01/21 18:40 Urine Glucose (UA) NEGATIVE mg/dL (NEGATIVE) 02/01/21 18:40 Urine Ketones TRACE mg/dL (NEGATIVE) 02/01/21 18:40 Urine Occult Blood TRACE-INTA (NEGATIVE) 02/01/21 18:40 Urine Nitrite NEGATIVE (NEGATIVE) 02/01/21 18:40 Urine Bilirubin NEGATIVE (NEGATIVE) 02/01/21 18:40 Urine Urobilinogen 1 (NORMAL) E.U./dL (NORMAL) 02/01/21 18:40 Ur Leukocyte Esterase NEGATIVE (NEGATIVE) 02/01/21 18:40 Urine RBC 6-10 /HPF (0-5) H 02/01/21 18:40 Urine WBC 4-5 /HPF (0-3) 02/01/21 18:40 Ur Squamous Epith Cells FEW Squamous (<= Few) 02/01/21 18:40 Urine Bacteria Rare /HPF (None Seen) 02/01/21 18:40 Urine Culture Comments NOT INDICATED 02/01/21 18:40 Nasal Adenovirus (PCR) NOT DETECTED 02/01/21 19:20 Nasal B. parapertussis DNA (PCR) NOT DETECTED 02/01/21 19:20 Nasal Coronavir 229E PCR NOT DETECTED 02/01/21 19:20 Nasal Coronavir HKU1 PCR NOT DETECTED 02/01/21 19:20 Nasal Coronavir NL63 PCR NOT DETECTED 02/01/21 19:20 Nasal Coronavir OC43 PCR NOT DETECTED 02/01/21 19:20 Nasal Enterovir/Rhinovir PCR NOT DETECTED 02/01/21 19:20 Nasal Influenza B PCR NOT DETECTED 02/01/21 19:20 Nasal Influenza A PCR NOT DETECTED 02/01/21 19:20 Nasal Parainfluen 1 PCR NOT DETECTED 02/01/21 19:20 Nasal Parainfluen 2 PCR NOT DETECTED 02/01/21 19:20 Nasal Parainfluen 3 PCR NOT DETECTED 02/01/21 19:20 Nasal Parainfluen 4 PCR NOT DETECTED 02/01/21 19:20 Nasal RSV (PCR) NOT DETECTED 02/01/21 19:20 Nasal B.pertussis DNA PCR NOT DETECTED 02/01/21 19:20 Nasal C.pneumoniae (PCR) NOT DETECTED 02/01/21 19:20 [place] Human Metapneumo PCR NOT DETECTED 02/01/21 19:20 Nasal M.pneumoniae (PCR) NOT DETECTED 02/01/21 19:20 Nasal SARS-CoV-2 (PCR) DETECTED A 02/01/21 19:20 - Procedures Procedures: Procedures INSPECTION OF LOWER INTESTINAL TRACT, ENDO (02/27/15) REPOSITION LEFT UPPER FEMUR WITH INTRAMED FIX, PERC APPROACH (12/06/16) ABX Reporting Has patient been on IV antibiotics over the past 48 hours?: Yes
[2021-02-03 08:45] LABS: CALCIUM 8.2 mg/dL (8.5-10.3); CREATININE 1.2 mg/dL (0.6-1.2); POTASSIUM 4.2 mmol/L (3.5-5.0)
[2021-02-03] MEDS ORDERED: PNEUMOCOCCAL 13-VALENT CONJ 0.5 ML SYRINGE IM ONE (09:00)
[2021-02-03] MEDS ORDERED: REMDESIVIR 100MG VIAL 200 MG in SODIUM CHLORIDE 0.9% 250 ML IV ONE (12:00)
[2021-02-04] MEDS: SODIUM CHLORIDE FLUSH 0.9% 10 ML SYRINGE IVP SCH ×2 (01:31→09:15)
[2021-02-04] MEDS: ACETAMINOPHEN 325 MG TABLET PO PRN (03:48)
[2021-02-04 05:22] LABS: BASOPHILS % (AUTO) 0.4 %; EOSINOPHILS % (AUTO) 0.3 %; HCT - HEMATOCRIT 35.2 % (42.0-52.0); HGB - HEMOGLOBIN 11.6 g/dL (14.0-18.0); LYMPHOCYTES # (AUTO) 0.8 10^3/uL (1.5-3.5); LYMPHOCYTES % (AUTO) 10.3 %; MEAN CORPUSCULAR HEMOGLOBIN 30.5 pg (27.0-31.0); MEAN CORPUSCULAR VOLUME 92.6 fL (80.0-94.0); MEAN PLATELET VOLUME 9.8 fL (7.4-11.4); MONOCYTES # (AUTO) 0.5 10^3/uL (0.0-1.0); MONOCYTES % (AUTO) 6.2 %; NEUTROPHILS # (AUTO) 6.2 10^3/uL (1.5-6.6); NEUTROPHILS % (AUTO) 78.9 %; PLT - PLATELET COUNT 354 10^3/uL (130-450); RED CELL DISTRIBUTION WIDTH 14.5 % (12.0-15.0); WHITE BLOOD COUNT 7.9 x10^3/uL (4.8-10.8)
[2021-02-04 05:32] LABS: CREATININE 1.1 mg/dL (0.6-1.2)
[2021-02-04] MEDS: PIPERACILLIN/TAZOBACTAM 4.5 GM in SODIUM CHLORIDE 0.9% MINIBAG 100 ML IV SCH (06:52)
[2021-02-04 06:55] VITALS: BP 149/77
--- NOTE | 2021-02-04 08:47 | DISCHARGE SUMMARY ---
Discharge Summary Admit Date: 02/01/21 Discharge Date: 02/04/21 Discharging Provider: Alda Stewart Primary Care Provider: Lukasz Johnson Code Status: Attempt Resuscitation Condition at Discharge: Stable Discharge Disposition: 01 Home, Self Care - DIAGNOSES Admission Diagnoses: Community-acquired pneumonia Elevated D-dimer Cognitive and neurobehavioral dysfunction following brain injury Discharge Diagnoses with Status of Each Condition: Acute respiratory failure with hypoxia: Resolved/ Improved. This was due to community-acquired pneumonia and Covid pneumonia. COVID-19 pneumonia; Improved. Will be discharged with 5 more days of prednisone 60 mg p.o. daily. Community-acquired pneumonia: Improved. Patient will be discharged with a prescription of Augmentin for 5 days. He was on Zosyn for 4 days in the hospital BPH: Flomax ordered for 14 days. Elevated D-dimer: This was likely related to COVID-19 pneumonia. Patient was on Lovenox for DVT prophylaxis while in the hospital. Cognitive and neurobehavioral dysfunction following brain injury: Patient is at baseline functioning. - HPI History of Present Illness: This pleasant 80-year-old white male was brought in by EMS because of increasing shortness of breath. He had been sick for a few days with cough, shortness of breath, fever. He was seen by his primary care provider who prescribed "5 little pills" for pneumonia. He was told that his chest x-ray had pneumonia. In the EMR there is a chest x-ray ordered by CARROLL Johnson from January 27 that shows right mid/lower lung zone pneumonia infiltrate. This is not the typical infiltrate of Covid. He says that in spite of the antibiotics he is gotten worse. He cannot breathe, he cannot do anything, and he can even eat or drink very much. It has gotten to the point that the shortness of breath left him with no energy. Even though he was hungry, he could not eat. He denies diarrhea. He did have an episode of hemoptysis this morning. Otherwise nonproductive cough. No edema, no chest pain, no palpitations. No one else in his family is sick. So EMS was called and they brought him to the emergency room. He was 99% on room air,but later dropped to 92% on RA, respirations were 18, blood pressure 138/82, heart rate 80, temperature 36.5. His respirations were even, unlabored. Chest x-ray showed increased, right greater than left, pneumonia. It was severe on the right, a moderate on the left. No pleural effusions.Covid negative. He has a normal white cell count but C-reactive protein is 19.4. I went ahead ordered a D-dimer and his D-dimer is 1050. He has not had any recent change in physical endurance until he got sick. He denies any leg edema or painful calves. Patient states that he would like to be a full code if he needs to be intubated or he has a cardiopulmonary arrest. - HOSPITAL COURSE Hospital Course: Patient was admitted to the medical surgical floor and started on Zosyn. Zosyn was maintained for 4 days of hospital stay. By the time of discharge he was prescribed Augmentin 5/125 mg to take 1 tablet p.o. twice daily x5 more days. His COVID-19 test subsequently came back positive. As a result he was placed on Decadron 6 mg IV daily. By the time of discharge he was prescribed Decadron 6 mg p.o. daily for 5 more days. Patient received 2 days worth of remdesivir. During the hospital stay he required 3 L of oxygen to maintain his oxygen saturation between 92 and 94%. By the day of discharge he was breathing comfortably on room air with oxygen saturation in the mid 90s. He underwent an oxygen desaturation study from which it was determined he did not need home oxygen. He was also prescribed Flomax to take 1 capsule daily for 14 days upon discharge for BPH. The patient's hospital stay was unremarkable. He steadily improve daily. He is to follow-up with his primary care physician within 7 to 10 days or as needed. - ALLERGIES Allergies/Adverse Reactions: Allergies Allergy/AdvReac Type Severity Reaction Status Date / Time No Known Drug Allergies Allergy Verified 02/01/21 14:07 - MEDICATIONS Home Medications: Ambulatory Orders Medication Instructions Recorded Confirmed Aspirin [Kailee Chewable Aspirin] 81 mg DAILY 03/10/15 02/02/21 [place]-3/Dha/Epa/Fish Oil [Fish Oil 1 each PO DAILY 02/02/21 02/02/21 1,000 mg Softgel] Amox/Clav 875/125 [Augmentin 1 tablet PO Q12H 10 Days #10 tablet 02/04/21 875/125 Tab] Tamsulosin [Flomax] 1 cap PO DAILY 14 Days #14 cap 02/04/21 dexAMETHasone [Decadron] 6 mg PO DAILY 5 Days #5 tablet 02/04/21 - PHYSICAL EXAM AT DISCHARGE General Appearance: positive: No acute distress, Alert Eyes Bilateral: positive: PERRL, EOMI ENT: positive: No signs of dehydration Neck: positive: No JVD, Trachea midline Respiratory: positive: Chest non-tender, No respiratory distress, Other (Mild crackles in lung bases) Cardiovascular: positive: Regular rate & rhythm Back: positive: Nml inspection Skin: positive: Color nml, No rash, Warm, Dry Extremities: positive: Non-tender, Full ROM, Nml appearance, No pedal edema Neurologic/Psychiatric: positive: Oriented x3, Mood/affect nml - LABS Result Diagrams: 02/04/21 05:01 02/04/21 05:01 - TIME SPENT Time Spent in Discharge (Minutes): 20
--- NOTE | 2021-02-04 08:48 | Discharge Plan ---
Discharge Plan Problem Reviewed?: Yes Disposition: Home, Self Care Condition: Stable Prescriptions: Amox/Clav 875/125 [Augmentin 875/125 Tab] 1 tablet PO Q12H 10 Days #10 tablet dexAMETHasone [Decadron] 6 mg PO DAILY 5 Days #5 tablet Tamsulosin [Flomax] 1 cap PO DAILY 14 Days #14 cap Diet: Regular Activity Restrictions: Activity as Tolerated Health Concerns: You were admitted on 02/01/2021 with difficulty in breathing. Chest x-ray showed that you had pneumonia right greater than left. You required about 3 L of oxygen via nasal cannula to keep your oxygen saturation around 92%. You were started on Zosyn antibiotic which was maintained throughout your hospital stay. At the time of discharge the antibiotic was switched to Augmentin 1 tablet p.o. twice daily for 5 more days. Your COVID-19 test subsequently came back positive. As a result you were also started on steroids Decadron IV. Upon discharge she will be prescribed oral Decadron to take for 5 more days. It will be Decadron 6 mg p.o. daily x5 days. An oxygen desaturation study was done and you were determined not to be in need of oxygen by the time of discharge. You were breathing comfortably on room air with oxygen saturation at 94%. You are being discharged in stable condition. You may follow-up with your primary care physician within 7 to 10 days. No Smoking: If you smoke, Please STOP! Call for help. Follow-up with: HAKEEM HAGEN PA [Primary Care Provider] -
[2021-02-04] MEDS ORDERED: REMDESIVIR 100MG VIAL 100 MG in SODIUM CHLORIDE 0.9% 100ML 100 ML IV SCH (09:00)
[2021-02-04] MEDS: DEXAMETHASONE 4 MG/ML VIAL IVP SCH (09:14)
[2021-02-04] MEDS: ENOXAPARIN 80 MG/0.8 ML SYRINGE SUBQ SCH (09:14)
[2021-02-04] MEDS: TAMSULOSIN 0.4 MG CAPSULE PO SCH (09:15)
[2021-02-04] MEDS: SODIUM CHLORIDE FLUSH 0.9% 10 ML SYRINGE IVP PRN (10:11)
== END 2021-02-04 14:20 | disposition home or self-care (01) | DRG 177 ==
LOC: EDUNIT# → ED 14:00 → MS3 15:11
PROVIDERS: ADMIT Specialist; ATTEND Internal Medicine
PROC: 3E0333Z Introduction of Anti-inflammatory into Peripheral Vein, Percutaneous Approach (ICD-10-PCS; 2021-02-01)
PROC: XW033E5 Introduction of Remdesivir Anti-infective into Peripheral Vein, Percutaneous Approach, New Technology Group 5 (ICD-10-PCS; principal; 2021-02-03)
DX: U07.1 COVID-19 (principal); Z20.822 Contact with and (suspected) exposure to COVID-19; J12.82 Pneumonia due to coronavirus disease 2019; J96.01 Acute respiratory failure with hypoxia; J18.9 Pneumonia, unspecified organism; R79.1 Abnormal coagulation profile; Z87.891 Personal history of nicotine dependence; N40.0 Benign prostatic hyperplasia without lower urinary tract symptoms; K21.9 Gastro-esophageal reflux disease without esophagitis
CPT/HCPCS: 36415; 71045; 71275; 80048; 80053; 81001; 82550; 83605; 85025; 85379; 86140; 87040; 87631; 99284; 99285; A9270; J1650; J7120; Q9967; 0202U; 87086; 90670

== ENCOUNTER 2022-10-15 12:28 | Outpatient (CLI) | payer MEDICARE ==
--- NOTE | 2022-10-15 13:51 | XRAY Report ---
PROCEDURE: Knee 2 View LT INDICATIONS: CONTUSION TECHNIQUE: 2 views of the left knee(s) were acquired. COMPARISON: None. FINDINGS: Bones: No fractures or dislocations. No suspicious bony lesions. 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 Soft tissues: Mild knee joint effusion. No suspicious soft tissue calcifications or masses. Mild ch ondrocalcinosis is present. IMPRESSION: Mild effusion. No visualized acute fracture or dislocation. However, occult injury cannot be excluded . Recommend short interval imaging follow-up in 7-10 days as clinically indicated for additional eval uation. Reviewed by: Mirian Hightower MD on 10/15/2022 1:50 PM PDT Approved by: Mirian Hightower MD on 10/15/2022 1:50 PM PDT Station ID: [id number]
== END 2022-10-15 12:29 | disposition home or self-care (01) ==
LOC: DI 12:28
PROVIDERS: ATTEND Family Medicine
DX: S80.02XA Contusion of left knee, initial encounter (principal); M25.462 Effusion, left knee